=== PATIENT | female | born 1955 | race Caucasian/White ===

== ENCOUNTER 2016-07-05 11:54 | Emergency (ER) | payer MEDICARE, OTHER ==
[~2016-07-05] VITALS: Ht 170.2 cm; Wt 91.1 kg
[~2016-07-05 11:54] MED LIST: ALBU1.25 NEB; AZIT250T3 PO; COMPRESSOR NEBU1 MIS; INDO50CA PO; MOBI15TA PO; NEBUKIT5; PRED10PA2 PO; VENTAER INH
[2016-07-05 12:11] VITALS: BP 125/73; PULSE 77; RESP 18; TEMP 98.1; O2SAT 96
--- NOTE | 2016-07-05 12:23 | PD ---
HPI Chief Complaint: Skin Problem Time Seen by Provider: 12:23 Travel History International Travel<30 days: No Contact w/Intl Traveler<30days: No Traveled to known affect area: No History of Present Illness HPI 60-year-old female presents the emergency Department with pain and swelling in the right knee for approximately 2 weeks. Patient denies any specific injury during that time. She has a history of arthritis. Patient has noted a small contusion to the top of the anterior right knee with small erythematous lesion which she said draining a little bit of pus. She is worried about cellulitis. She has no history of MRSA. She is allergic to erythromycin, Haldol, Mellaril, Stelazine, and Thorazine. PFSH Past Medical History Hx Anticoagulant Therapy: No Blood Disorders: Yes Anxiety: Yes Depression: Yes Heart Rhythm Problems: Yes ("a doctor told me I had a rhythm problem") Cancer: No Cardiac Catheterization: No Cardiovascular Problems: Yes Chemotherapy: No Chest Pain: Yes Congestive Heart Failure: No Cerebrovascular Accident: No Diabetes: No Diminished Hearing: No Endocrine: No Gastrointestinal Disorders: Yes (IBS) Genitourinary: Yes (hx of uti and yeast infection) Hepatitis: Yes (HX OF HEP A) Hypertension: Yes Immune Disorder: No Musculoskeletal: Yes Neurologic: No Psychiatric: Yes ("auditory hallucinations at times") Reproductive: Yes Respiratory: No Integumentary: Yes (CHRONIC "IMPETIGO" ON BLE) Immunizations Current: Yes (HEPATITIS-2001) Migraines: Yes Myocardial Infarction: Yes (STATES MY DOCTOR TOLD ME MY EKG WAS ABNORMAL AND THAT i HAD A HEART ATTACK) Schizophrenia: Yes Thyroid Disease: Yes ?: Not Menopausal: Yes : 3 Para: 3 Miscarriage: 0 : 0 Ovarian Cysts: Yes Past Surgical History Coronary Artery Bypass Graft: No Eye Surgery: Yes (right eye surgery) Gynecologic Surgery: Yes (OVARIAN CYST SURGER AT THE AGE OF 22 ) Hysterectomy: No Pacemaker: No Other Surgery: Yes (R CHEEK SURGERY AT THE AGE 22) Social History Alcohol Use: No Tobacco Use: Yes (2 cigs) Substance Use: Yes (MARIJUANA) Allergies-Medications (Allergen,Severity, Reaction): Coded Allergies: E-Mycin (Verified Adverse Reaction, Severe, INCREASED HR, 07/05/16) Haldol (Verified Adverse Reaction, Severe, LOWERS BP, 07/05/16) Mellaril (Verified Adverse Reaction, Severe, LOWERS BP, 07/05/16) Stelazine (Verified Adverse Reaction, Severe, LOWERS BP, 07/05/16) Thorazine (Verified Adverse Reaction, Severe, LOWERS BP, 07/05/16) Reported Meds & Prescriptions Reported Meds & Active Scripts Active Albuterol Neb (Albuterol Sulfate) 1.25 Mg/3 Ml Neb 1.25 Mg NEB QID NEB PRN Nebulizer Kit/Tubing/Mout (N/A) 1 Kit Kit 1 Kit .ROUTE DIRECTED Compressor Nebulizer 1 Mis Mis 1 Ea .ROUTE DIRECTED Ventolin Hfa 18 GM Inh (Albuterol Sulfate) 90 Mcg/Act Aer 2 Puff INH Q4-6H PRN Prednisone (48) 10 mg tab Dose Pack (Prednisone) 10 Mg Dspk 10 Mg PO DIRECTED Azithromycin 250 Mg Tab 250 Mg PO DIRECTED Take 2 tabs (500 mg) on day 1 then 1 tab daily x 4 days. [id number] M 50 Mg Cap 50 Mg PO TID Reported [id number] M1 15 Mg Tab 15 Mg PO BID Review of Systems Except as stated in HPI: all other systems reviewed are Neg General / Constitutional: No: Fever Eyes: No: Visual changes HENT: No: Headaches Cardiovascular: No: Chest Pain or Discomfort Respiratory: No: Shortness of Breath Gastrointestinal: No: Abdominal Pain Genitourinary: No: Dysuria Musculoskeletal: Positive: Arthralgias, Limited ROM, Pain Skin: Positive Lesions (see history present illness.), No Rash Neurologic: No: Weakness Psychiatric: No: Depression Endocrine: No: Polydipsia Hematologic/Lymphatic: No: Easy Bruising Physical Exam Narrative GENERAL: Morbidly obese patient in no acute distress. SKIN: Warm and dry. Normal color. Normal turgor. Patient has 4 mm superficial lesion to the right anterior upper knee without focal swelling or induration. No signs of abscess. No active drainage or bleeding. HEAD: Atraumatic. Normocephalic. EYES: Pupils equal and round. No scleral icterus. No injection or drainage. ENT: No nasal bleeding or discharge. Mucous membranes pink and moist. NECK: Trachea midline. Supple nontender. CARDIOVASCULAR: Regular rate and rhythm. RESPIRATORY: No accessory muscle use. Clear to auscultation. Breath sounds equal bilaterally. MUSCULOSKELETAL: Extremities without clubbing, cyanosis, or edema. No obvious deformities. Patient has moderate Gen. knee effusion to the right, with generalized pain without laxity or specificity to medial or lateral joint line. NEUROLOGICAL: Awake and alert. No obvious cranial nerve deficits. Motor grossly within normal limits. Five out of 5 muscle strength in the arms and legs. Normal speech. PSYCHIATRIC: Appropriate mood and affect; insight and judgment normal. Data Data Last Documented VS Vital Signs Date Time Temp Pulse Resp B/P Pulse Ox O2 Delivery O2 Flow Rate FiO2 07/05/16 12:11 98.1 77 18 125/73 96 MDM Medical Decision Making Medical Screen Exam Complete: Yes Emergency Medical Condition: Yes Differential Diagnosis Cellulitis. Right knee effusion. Osteoarthritis. Narrative Course Patient is medically stable at time of exam. Radiographic imaging is not felt warranted. Patient will be treated with prednisone 20 mg twice a day 7 days. Patient also placed on Bactrim DS twice a day 7 days. Patient also use Bactroban to the skin lesion twice daily for the next 7 days. Patient is to use Tarun wrap to the knee for support and comfort for the next week. Patient follow with her primary care physician in one week to ensure improvement. Patient may require orthopedic consult on her knee. Patient can return the emergency Department with worsening symptoms as needed. Diagnosis Primary Impression: Right knee pain Qualified Code: M25.561 - Acute pain of right knee Additional Impression: Cellulitis Qualified Code: L03.115 - Cellulitis of right lower extremity Referrals: Primary Care Physician Patient Instructions: Cellulitis (ED), General Instructions, Knee Pain (ED) Additional Instructions: Radiographic imaging is not felt warranted. Patient will be treated with prednisone 20 mg twice a day 7 days. Patient also placed on Bactrim DS twice a day 7 days. Patient also use Bactroban to the skin lesion twice daily for the next 7 days. Patient is to use Tarun wrap to the knee for support and comfort for the next week. Patient follow with her primary care physician in one week to ensure improvement. Patient may require orthopedic consult on her knee. Patient can return the emergency Department with worsening symptoms as needed. Med/Other Pt SpecificInfo: Prescription(s) given Disposition: 01 DISCHARGE HOME Condition: Stable Henry Ortiz July 05, 2016 12:23
[2016-07-05] MEDS ORDERED: SULFAMETHOXAZOLE-TRIMETHOPRIM DS 800-160 MG TAB PO ONE (12:30)
[2016-07-05] MEDS ORDERED: KETOROLAC TROMETHAMINE 60 MG/2 ML (IM) VIAL IM ONE (12:30)
[2016-07-05] MEDS ORDERED: MUPI2%T TOPICAL (12:34)
[2016-07-05] MEDS ORDERED: PRED20 PO (12:34)
[2016-07-05] MEDS ORDERED: BACT800T5 PO (12:34)
== END 2016-07-05 13:00 | disposition home or self-care (01) ==
LOC: PHEFT 11:54
DX: M25.561 Pain in right knee (principal); L03.115 Cellulitis of right lower limb; B95.61 Methicillin susceptible Staphylococcus aureus infection as the cause of diseases classified elsewhere
CPT/HCPCS: 86403; 87070; 87186; 96372; 99283; J1885

== ENCOUNTER 2016-07-22 14:29 | Emergency (ER) | payer MEDICARE, OTHER ==
[~2016-07-22] VITALS: Ht 167.6 cm; Wt 88.6 kg
[~2016-07-22 14:29] MED LIST changes: +BACT800T5 PO; +MUPI2%T TOPICAL; +PRED20 PO
[2016-07-22 14:33] VITALS: BP 134/72; PULSE 89; RESP 18; TEMP 98.3; O2SAT 97
[2016-07-22] MEDS ORDERED: IBUP-232 PO (15:03)
--- NOTE | 2016-07-22 15:03 | PD ---
HPI Chief Complaint: Musculoskeletal Complaint Time Seen by Provider: 14:59 Travel History International Travel<30 days: No Contact w/Intl Traveler<30days: No Traveled to known affect area: No History of Present Illness HPI 60-year-old female presents to the emergency room requesting pain medications for a torn meniscus. Patient states she injured it couple months ago and has had pain since then. She's been the emergency room several times for knee pain and followed-up with her primary care physician who ordered an outpatient MRI. Her MRI was done 5 days ago and she found out results 3 days ago that she has a torn medial meniscus. She has an appointment with her orthopedic surgeon, Dr. Marie, in 3 weeks. Patient sees her primary care physician every 2 weeks and is prescribed Tylenol #3 which she is supposed to take every 3 hours but has been taking every 4 hours because the pain is too much. It is constant, sharp, worse with ambulation and range of motion. She has an appointment with her primary care physician in 5 days. She refuses to wear a knee immobilizer because it is too uncomfortable. Denies paresthesias. PFSH Past Medical History Hx Anticoagulant Therapy: No Blood Disorders: Yes Anxiety: Yes Depression: Yes Heart Rhythm Problems: Yes ("a doctor told me I had a rhythm problem") Cancer: No Cardiac Catheterization: No Cardiovascular Problems: Yes Chemotherapy: No Chest Pain: Yes Congestive Heart Failure: No Cerebrovascular Accident: No Diabetes: No Diminished Hearing: No Endocrine: No Gastrointestinal Disorders: Yes (IBS) Genitourinary: Yes (hx of uti and yeast infection) Hepatitis: Yes (HX OF HEP A) Hypertension: Yes Immune Disorder: No Musculoskeletal: Yes Neurologic: No Psychiatric: Yes ("auditory hallucinations at times") Reproductive: Yes Respiratory: No Integumentary: Yes (CHRONIC "IMPETIGO" ON BLE) Immunizations Current: Yes (HEPATITIS-2001) Migraines: Yes Myocardial Infarction: Yes (STATES MY DOCTOR TOLD ME MY EKG WAS ABNORMAL AND THAT i HAD A HEART ATTACK) Schizophrenia: Yes Thyroid Disease: Yes Tetanus Vaccination: > 5 Years Influenza Vaccination: No Menopausal: Yes : 3 Para: 3 Miscarriage: 0 : 0 Ovarian Cysts: Yes Past Surgical History Coronary Artery Bypass Graft: No Eye Surgery: Yes (right eye surgery) Gynecologic Surgery: Yes (OVARIAN CYST SURGER AT THE AGE OF 22 ) Hysterectomy: No Pacemaker: No Other Surgery: Yes (R CHEEK SURGERY AT THE AGE 22) Social History Alcohol Use: No Tobacco Use: Yes (03/10 PPD) Substance Use: Yes (MARIJUANA) Allergies-Medications (Allergen,Severity, Reaction): Coded Allergies: E-Mycin (Verified Adverse Reaction, Severe, INCREASED HR, 07/22/16) Haldol (Verified Adverse Reaction, Severe, LOWERS BP, 07/22/16) Mellaril (Verified Adverse Reaction, Severe, LOWERS BP, 07/22/16) Stelazine (Verified Adverse Reaction, Severe, LOWERS BP, 07/22/16) Thorazine (Verified Adverse Reaction, Severe, LOWERS BP, 07/22/16) Reported Meds & Prescriptions Reported Meds & Active Scripts Active Prednisone 20 Mg Tab 20 Mg PO BID Albuterol Neb (Albuterol Sulfate) 1.25 Mg/3 Ml Neb 1.25 Mg NEB QID NEB PRN Nebulizer Kit/Tubing/Mout (N/A) 1 Kit Kit 1 Kit .ROUTE DIRECTED Compressor Nebulizer 1 Mis Mis 1 Ea .ROUTE DIRECTED Ventolin Hfa 18 GM Inh (Albuterol Sulfate) 90 Mcg/Act Aer 2 Puff INH Q4-6H PRN Prednisone (48) 10 mg tab Dose Pack (Prednisone) 10 Mg Dspk 10 Mg PO DIRECTED Review of Systems Except as stated in HPI: all other systems reviewed are Neg Physical Exam Narrative GENERAL: Unkempt, morbidly obese female in no acute distress. Afebrile. Ambulatory with a limp. SKIN: Focused skin assessment warm/dry. No erythema or ecchymosis. HEAD: Atraumatic. Normocephalic. EYES: Pupils equal and round. No scleral icterus. No injection or drainage. NECK: Trachea midline. No JVD. CARDIOVASCULAR: Regular rate and rhythm. No murmur appreciated. RESPIRATORY: No accessory muscle use. Clear to auscultation. Breath sounds equal bilaterally. MUSCULOSKELETAL: No obvious deformities. No clubbing. No cyanosis. No edema. Full range of motion. 2+ dorsalis pedis pulse. Strength 5/5 and equal. Tenderness to palpation of the medial knee. Data Data Last Documented VS Vital Signs Date Time Temp Pulse Resp B/P Pulse Ox O2 Delivery O2 Flow Rate FiO2 07/22/16 14:33 98.3 89 18 134/72 97 MDM Medical Decision Making Medical Screen Exam Complete: Yes Emergency Medical Condition: No Medical Record Reviewed: Yes Differential Diagnosis Bursitis versus fracture versus ligamentous injury versus meniscal tear Narrative Course 60-year-old female presents to the emergency room for requesting narcotic pain medication for chronic right knee pain. Patient had an MRI this week that revealed she has a meniscus tear. Her primary care physician would not prescribe her more pain medication because he has been giving her Tylenol 3 every 2 weeks and told her to come to the emergency room. Physical exam reveals right lower extremity is neurovascularly intact with 2+ dorsalis pedis pulse. He is ambulatory without a limp. No edema, ecchymosis, erythema. There are no urgent or emergent medical conditions at this time. A medical screening exam was performed: At the time of evaluation the presenting medical condition was determined not to be of an emergent nature. The patient was given the option of receiving additional care, and decided to stay. She was given a prescription for ibuprofen and told to follow-up with her primary care physician as planned in 5 days. Diagnosis Primary Impression: Acute meniscal tear of right knee Qualified Code: S83.206A - Acute meniscal tear of right knee, initial encounter Referrals: Primary Care Physician Patient Instructions: General Instructions, Meniscus Tear (ED) Additional Instructions: Rest and drink plenty of fluids. Take ibuprofen with food as directed, as needed for pain. Apply ice to the affected area for 20 minutes at a time, as needed for pain and swelling. Follow-up with a primary care physician. Return to the emergency room for worsening symptoms. Med/Other Pt SpecificInfo: Prescription(s) given Scripts Ibuprofen 600 Mg [id number] Mg PO Q6H PRN (Pain/Inflammation) #40 TAB Ref 0 Prov:Louie Anderson MD 07/22/16 Disposition: 01 DISCHARGE HOME Condition: Stable Marialuisa Melendrez July 22, 2016 15:03
== END 2016-07-22 15:31 | disposition home or self-care (01) ==
LOC: PHEFT 14:29
DX: S83.206D Unspecified tear of unspecified meniscus, current injury, right knee, subsequent encounter (principal); X58.XXXD Exposure to other specified factors, subsequent encounter
CPT/HCPCS: 99283

== ENCOUNTER 2016-08-18 03:55 | Emergency (ER) | payer MEDICARE, OTHER ==
[~2016-08-18 03:55] MED LIST changes: -AZIT250T3 PO; -BACT800T5 PO; +IBUP-232 PO; -INDO50CA PO; -MOBI15TA PO; -MUPI2%T TOPICAL
[2016-08-18 04:05] VITALS: BP 148/91; PULSE 68; RESP 18; TEMP 97.4
--- NOTE | 2016-08-18 04:46 | PD ---
HPI Chief Complaint: Lump, Cyst, Hernia Time Seen by Provider: 04:25 Travel History International Travel<30 days: No Contact w/Intl Traveler<30days: No Traveled to known affect area: No History of Present Illness HPI Patient is a 60-year-old female presenting to the department via [facility] for evaluation of right shoulder pain that has been ongoing for several days. She states she noticed a lump on her shoulder yesterday afternoon which prompted her visit tonight. She states she took ibuprofen yesterday with no relief of her symptoms. She denies any injury or trauma. She states she cannot move her arm. Per EMS report patient was moving both arms en route to the hospital without difficulty. Patient states her pain is a 7 out of 10. PFSH Past Medical History Hx Anticoagulant Therapy: No Blood Disorders: Yes Anxiety: Yes Depression: Yes Cancer: No Cardiac Catheterization: No Cardiovascular Problems: Yes Chemotherapy: No Chest Pain: Yes Congestive Heart Failure: No Cerebrovascular Accident: No Diabetes: No Diminished Hearing: No Endocrine: No Gastrointestinal Disorders: Yes (IBS) Hepatitis: Yes (HX OF HEP A) Hypertension: Yes Immune Disorder: No Musculoskeletal: Yes Neurologic: No Psychiatric: Yes ("auditory hallucinations at times") Reproductive: Yes Respiratory: No Integumentary: Yes (CHRONIC "IMPETIGO" ON BLE) Immunizations Current: Yes (HEPATITIS-2000) Migraines: Yes Myocardial Infarction: Yes (STATES MY DOCTOR TOLD ME MY EKG WAS ABNORMAL AND THAT i HAD A HEART ATTACK) Schizophrenia: Yes Thyroid Disease: Yes ?: Not Menopausal: Yes : 3 Para: 3 Miscarriage: 0 : 0 Ovarian Cysts: Yes Past Surgical History Coronary Artery Bypass Graft: No Eye Surgery: Yes (right eye surgery) Gynecologic Surgery: Yes (OVARIAN CYST SURGER AT THE AGE OF 22 ) Hysterectomy: No Pacemaker: No Other Surgery: Yes (R CHEEK SURGERY AT THE AGE 22) Social History Alcohol Use: No Tobacco Use: Yes (03/10 PPD) Substance Use: Yes (MARIJUANA) Allergies-Medications (Allergen,Severity, Reaction): Coded Allergies: E-Mycin (Verified Adverse Reaction, Severe, INCREASED HR, 07/22/16) Haldol (Verified Adverse Reaction, Severe, LOWERS BP, 07/22/16) Mellaril (Verified Adverse Reaction, Severe, LOWERS BP, 07/22/16) Stelazine (Verified Adverse Reaction, Severe, LOWERS BP, 07/22/16) Thorazine (Verified Adverse Reaction, Severe, LOWERS BP, 07/22/16) Reported Meds & Prescriptions Reported Meds & Active Scripts Active Ibuprofen 600 Mg Tab 600 Mg PO Q6H PRN Prednisone 20 Mg Tab 20 Mg PO BID Albuterol Neb (Albuterol Sulfate) 1.25 Mg/3 Ml Neb 1.25 Mg NEB QID NEB PRN Nebulizer Kit/Tubing/Mout (N/A) 1 Kit Kit 1 Kit .ROUTE DIRECTED Compressor Nebulizer 1 Mis Mis 1 Ea .ROUTE DIRECTED Ventolin Hfa 18 GM Inh (Albuterol Sulfate) 90 Mcg/Act Aer 2 Puff INH Q4-6H PRN Prednisone (48) 10 mg tab Dose Pack (Prednisone) 10 Mg Dspk 10 Mg PO DIRECTED Review of Systems Except as stated in HPI: all other systems reviewed are Neg Musculoskeletal: Positive: Myalgias, Arthralgias, Limited ROM Skin: Positive Lumps Physical Exam Narrative GENERAL: Well-nourished, well-developed patient. SKIN: Focused skin assessment warm/dry. HEAD: Normocephalic. EYES: No scleral icterus. No injection or drainage. NECK: Supple, trachea midline. No JVD or lymphadenopathy. CARDIOVASCULAR: Regular rate and rhythm without murmurs, gallops, or rubs. RESPIRATORY: Breath sounds equal bilaterally. No accessory muscle use. GASTROINTESTINAL: Abdomen soft, non-tender, nondistended. MUSCULOSKELETAL: No cyanosis, or edema. There is a 2 cm protrusion to the anterior right shoulder, no erythema noted. Nontender to palpation. Positive radial pulse, no edema, no erythema, patient is neurovascularly intact. BACK: Nontender without obvious deformity. No CVA tenderness. Data Data Last Documented VS Vital Signs Date Time Temp Pulse Resp B/P Pulse Ox O2 Delivery O2 Flow Rate FiO2 08/18/16 04:05 97.4 68 18 148/91 Orders Shoulder, Complete (>2vws) (08/18/16 ) Ibuprofen (Motrin) (08/18/16 05:15) Cyclobenzaprine (Flexeril) (08/18/16 05:15) MDM Medical Decision Making Medical Screen Exam Complete: Yes Emergency Medical Condition: Yes Interpretation(s) Last Impressions Shoulder X-Ray 08/18/16 0000 Signed Impressions: Service Date/Time: Thursday, August 18, 2016 05:29 - CONCLUSION: Chronic changes and no evidence for acute fracture. Rossy Dominguez MD Vital Signs Date Time Temp Pulse Resp B/P Pulse Ox O2 Delivery O2 Flow Rate FiO2 08/18/16 04:05 97.4 68 18 148/91 Differential Diagnosis Lipoma versus cyst versus tear versus fracture versus malingering versus other Narrative Course Patient is a 60-year-old female presenting for right shoulder pain with no preceding injury or trauma. Patient is neurovascularly intact. She reports utilizing Tylenol No. 3 more than normal due to the pain and is currently out. This is normally prescribed to her by her primary doctor. When patient was not paying attention and talking to the nurse the lump on her shoulder was palpated with no reproducible pain until patient was once again focused on the exam. X-ray of the right shoulder shows no acute changes. The x-ray does mention chronic changes, this was discussed with patient. She continues to want her chronic pain medications. She states that ibuprofen and muscle relaxers will take too long. We'll be given a prescription for Lidoderm patches. She is encouraged to follow-up with her primary doctor for a referral to physical therapy. She verbalized understanding of instructions, she is now requesting a bus pass in order to return home. Patient is stable for discharge. Diagnosis Primary Impression: Shoulder pain Qualified Code: M25.511 - Right shoulder pain, unspecified chronicity Referrals: Primary Care Physician Patient Instructions: General Instructions, Shoulder Pain (ED), Shoulder Separation Exercises (GEN) Additional Instructions: Follow-up with your primary doctor Take ibuprofen as directed, you may continue your home pain medication as previously prescribed Use Lidoderm patches as directed Returned to emergency department for any new or worsening symptoms Heat and ice the affected area, continue range of motion exercises Med/Other Pt SpecificInfo: Prescription(s) given Scripts Lidocaine (Lidoderm)5 % Adh..patch1 Patch TOPICAL DAILY PRN (PAIN SCALE 1 TO 10 ) #10 Prov:Raquel Baird 08/18/16 Disposition: 01 DISCHARGE HOME Condition: Stable Raquel Baird Aug 18, 2016 04:46
[2016-08-18] MEDS ORDERED: CYCLOBENZAPRINE HCL 10 MG TAB PO ONE (05:15)
[2016-08-18] MEDS ORDERED: IBUPROFEN 800 MG TAB PO ONE (05:15)
--- NOTE | 2016-08-18 05:43 | RADRPT ---
EXAM DATE/TIME: 08/18/2016 05:29 [facility] COMPARISON: No previous studies available for comparison. INDICATIONS : Pain shoulder, lump on anterior portion of shoulder. MEDICAL HISTORY : None. SURGICAL HISTORY : None. ENCOUNTER: Initial ACUITY: 1 day PAIN SCORE: 0/10 LOCATION: Right shoulder FINDINGS: No definite fractures, dislocations, lytic, or sclerotic lesions are seen. Slight hypertrophic change s are seen in the AC joint indenting the subacromial fat plane to a moderate degree with a large suba rterial spur. The glenohumeral joint space is well maintained. CONCLUSION: Chronic changes and no evidence for acute fracture. Rossy Dominguez MD on August 18, 2016 at 5:40 Board Certified Radiologist. This report was verified electronically.
[2016-08-18] MEDS ORDERED: LIDO5DIS5 TOPICAL (05:58)
== END 2016-08-18 06:13 | disposition home or self-care (01) ==
LOC: NEPD 03:55
DX: M25.511 Pain in right shoulder (principal); I10 Essential (primary) hypertension; F12.90 Cannabis use, unspecified, uncomplicated; Z72.0 Tobacco use
CPT/HCPCS: 73030; 99283

== ENCOUNTER 2016-08-31 11:00 | Inpatient (IN) | payer MEDICARE, OTHER ==
[~2016-08-31] VITALS: Ht 167.6 cm; Wt 92.0 kg
[~2016-08-31 11:00] MED LIST changes: +LIDO5DIS5 TOPICAL
[2016-08-31 11:20] VITALS: BP 137/59; PULSE 74; RESP 20; TEMP 98.7; O2SAT 96
[2016-08-31] MEDS ORDERED: BACT800T5 PO (11:20)
[2016-08-31] MEDS ORDERED: ACETAMINOPHEN/HYDROcodone 325 MG/5 MG TAB PO ONE (11:30)
[2016-08-31 11:49] LABS: AUTOMATED NEUTROPHIL # 4.7 TH/MM3 (1.8-7.7); BASOPHIL % 0.6 % (0.0-2.0); EOSINOPHIL # 0.1 TH/MM3 (0-0.4); EOSINOPHIL % 1.3 % (0.0-4.0); HEMATOCRIT 37.3 % (35.0-46.0); LYMPH % 17.2 % (9.0-44.0); MEAN CELL VOLUME 84.1 FL (80.0-100.0); MEAN CORPUSCULAR HEMOGLOBIN 28.3 PG (27.0-34.0); MEAN CORPUSCULAR HGB CONC 33.6 % (32.0-36.0); MONO % 5.4 % (0.0-8.0); NEUT % 75.5 % (16.0-70.0); PLATELET COUNT 507 TH/MM3 (150-450); RED BLOOD COUNT 4.44 MIL/MM3 (4.00-5.30); RED CELL DISTRIBUTION WIDTH 13.4 % (11.6-17.2); WHITE BLOOD COUNT 6.1 TH/MM3 (4.0-11.0)
[2016-08-31 11:57] LABS: CHLORIDE 101 MEQ/L (98-107); HEMO FLAGS AUTO DIFF; POTASSIUM 3.2 MEQ/L (3.5-5.1); SODIUM (NA) 137 MEQ/L (136-145)
[2016-08-31 12:00] LABS: ANION GAP 9 MEQ/L (5-15); BICARBONATE 27.4 MEQ/L (21.0-32.0)
[2016-08-31 12:01] LABS: BLOOD UREA NITROGEN 3 MG/DL (7-18)
--- NOTE | 2016-08-31 12:02 | PD ---
HPI Chief Complaint: Skin Problem Time Seen by Provider: 11:19 Travel History International Travel<30 days: No Contact w/Intl Traveler<30days: No Traveled to known affect area: No History of Present Illness HPI Patient is a 60-year-old female brought in by EMS because of right shoulder pain. She has been here a few other times for the same thing. She has an area of redness and fluctuance to the right shoulder, which she says needs to be drained. She went to see an orthopedic surgeon, who took some fluid and sent it for culture. She has pain with movement of the arm. She denies injury to the arm. She says she thinks she had a fever a few days ago, but did not take her temperature. She was on Keflex since last Tuesday as well as Bactrim since last Tuesday. She reports taking these medications as directed. PFSH Past Medical History Hx Anticoagulant Therapy: No Blood Disorders: Yes Anxiety: Yes Depression: Yes Cardiac Catheterization: No Cardiovascular Problems: Yes Chemotherapy: No Chest Pain: Yes Congestive Heart Failure: No Cerebrovascular Accident: No Diabetes: No Diminished Hearing: No Endocrine: No Gastrointestinal Disorders: Yes (IBS) Hepatitis: Yes (HX OF HEP A) Hypertension: Yes Immune Disorder: No Medical other: Yes (MOst Hx recalled due to pt states its all on computer) Musculoskeletal: Yes Neurologic: No Psychiatric: Yes ("auditory hallucinations at times") Reproductive: Yes Respiratory: No Integumentary: Yes (CHRONIC "IMPETIGO" ON BLE) Immunizations Current: Yes (HEPATITIS-2001) Migraines: Yes Myocardial Infarction: Yes (STATES MY DOCTOR TOLD ME MY EKG WAS ABNORMAL AND THAT i HAD A HEART ATTACK) Schizophrenia: Yes Thyroid Disease: Yes Tetanus Vaccination: Unknown Influenza Vaccination: No ?: Not Menopausal: Yes : 3 Para: 3 Miscarriage: 0 : 0 Ovarian Cysts: Yes Past Surgical History Coronary Artery Bypass Graft: No Eye Surgery: Yes (right eye surgery) Gynecologic Surgery: Yes (OVARIAN CYST SURGER AT THE AGE OF 22 ) Hysterectomy: No Pacemaker: No Other Surgery: Yes (R CHEEK SURGERY AT THE AGE 22) Social History Alcohol Use: No Tobacco Use: Yes (03/10 PPD) Substance Use: Yes (MARIJUANA) Allergies-Medications (Allergen,Severity, Reaction): Coded Allergies: E-Mycin (Verified Adverse Reaction, Severe, INCREASED HR, 07/22/16) Haldol (Verified Adverse Reaction, Severe, LOWERS BP, 07/22/16) Mellaril (Verified Adverse Reaction, Severe, LOWERS BP, 07/22/16) Stelazine (Verified Adverse Reaction, Severe, LOWERS BP, 07/22/16) Thorazine (Verified Adverse Reaction, Severe, LOWERS BP, 07/22/16) Reported Meds & Prescriptions Reported Meds & Active Scripts Active Lidoderm (Lidocaine) 5 % Adh..patch 1 Patch TOPICAL DAILY PRN Ibuprofen 600 Mg Tab 600 Mg PO Q6H PRN Albuterol Neb (Albuterol Sulfate) 1.25 Mg/3 Ml Neb 1.25 Mg NEB QID NEB PRN Nebulizer Kit/Tubing/Mout (N/A) 1 Kit Kit 1 Kit .ROUTE DIRECTED Ventolin Hfa 18 GM Inh (Albuterol Sulfate) 90 Mcg/Act Aer 2 Puff INH Q4-6H PRN Reported Bactrim DS (Sulfamethoxazole-Trimethoprim) 800-160 Mg Tab 1 Tab PO BID Review of Systems Except as stated in HPI: all other systems reviewed are Neg General / Constitutional: Positive: Fever HENT: No: Headaches, Lightheadedness Cardiovascular: No: Chest Pain or Discomfort Respiratory: No: Shortness of Breath Gastrointestinal: No: Nausea, Vomiting Musculoskeletal: Positive: Pain Skin: Positive Change in Pigmentation Neurologic: No: Weakness, Dizziness Physical Exam Narrative GENERAL: Awake and alert, in no acute distress. SKIN: Focused skin assessment warm/dry. 5 cm area of erythema and warmth, slight fluctuance to the right anterior shoulder. HEAD: Atraumatic. Normocephalic. EYES: Pupils equal and round. No scleral icterus. No injection or drainage. ENT: Mucous membranes pink and moist. NECK: Trachea midline. No JVD. CARDIOVASCULAR: Regular rate and rhythm. No murmur appreciated. RESPIRATORY: No accessory muscle use. Clear to auscultation. Breath sounds equal bilaterally. MUSCULOSKELETAL: No obvious deformities. No clubbing. No cyanosis. No edema. Able to range her right shoulder fully. The right shoulder joint itself is not warm or erythematous. NEUROLOGICAL: Awake and alert. No obvious cranial nerve deficits. Motor grossly within normal limits. Normal speech. PSYCHIATRIC: Appropriate mood and affect; insight and judgment normal. Data Data Last Documented VS Vital Signs Date Time Temp Pulse Resp B/P Pulse Ox O2 Delivery O2 Flow Rate FiO2 08/31/16 12:37 69 20 105/59 97 Nasal Cannula 1 08/31/16 11:20 98.7 Orders Complete Blood Count With Diff (08/31/16 11:24) Comprehensive Metabolic Panel (08/31/16 11:24) Ct Shoulder W Iv Contrast (08/31/16 ) Iv Access Insert/Monitor (08/31/16 11:24) Acetamin-Hydrocod 325-5 Mg ([place] 5-325 (08/31/16 11:30) Iohexol 350 Inj (Omnipaque 350 Inj) (08/31/16 12:29) Clindamycin Inj (Cleocin Inj) (08/31/16 13:15) Levofloxacin 750 Mg Premix Inj (Levaquin (08/31/16 13:15) Admit Order (Ed Use Only) (08/31/16 ) Labs Laboratory Tests Test 08/31/16 11:40 White Blood Count 6.1 TH/MM3 Red Blood Count 4.44 MIL/MM3 Hemoglobin 12.6 GM/DL Hematocrit 37.3 % Mean Corpuscular Volume 84.1 FL Mean Corpuscular Hemoglobin 28.3 PG Mean Corpuscular Hemoglobin 33.6 % Concent Red Cell Distribution Width 13.4 % Platelet Count 507 TH/MM3 Mean Platelet Volume 7.4 FL Neutrophils (%) (Auto) 75.5 % Lymphocytes (%) (Auto) 17.2 % Monocytes (%) (Auto) 5.4 % Eosinophils (%) (Auto) 1.3 % Basophils (%) (Auto) 0.6 % Neutrophils # (Auto) 4.7 TH/MM3 Lymphocytes # (Auto) 1.0 TH/MM3 Monocytes # (Auto) 0.3 TH/MM3 Eosinophils # (Auto) 0.1 TH/MM3 Basophils # (Auto) 0.0 TH/MM3 CBC Comment AUTO DIFF Differential Comment AUTO DIFF CONFIRMED Sodium Level 137 MEQ/L Potassium Level 3.2 MEQ/L Chloride Level 101 MEQ/L Carbon Dioxide Level 27.4 MEQ/L Anion Gap 9 MEQ/L Blood Urea Nitrogen 3 MG/DL Creatinine 0.68 MG/DL Estimat Glomerular Filtration 88 ML/MIN Rate Random Glucose 104 MG/DL Calcium Level 8.7 MG/DL Total Bilirubin 0.2 MG/DL Aspartate Amino Transf 14 U/L (AST/SGOT) Alanine Aminotransferase 16 U/L (ALT/SGPT) Alkaline Phosphatase 81 U/L Total Protein 7.5 GM/DL Albumin 2.9 GM/DL MDM Medical Decision Making Medical Screen Exam Complete: Yes Emergency Medical Condition: Yes Medical Record Reviewed: Yes Differential Diagnosis Abscess versus cellulitis versus arthritis Narrative Course Patient is a 60-year-old female who comes in complaining of pain and swelling to her right shoulder. She has been here multiple times for this, and most recently was put on Bactrim and Keflex for infection. She says it's not improving in the pain is getting worse. Exam shows an area of redness and fluctuance to the anterior portion of the shoulder. IV established, labs sent. Labs show no acute abnormalities. CT of the shoulders shows a large fluid collection that extends into the glenohumeral joint. Patient given Levaquin based on sensitivities from culture performed on August 27. Dr. Powers from orthopedics was consulted. He will take the patient to the OR tomorrow for drainage of fluid. Patient will be transferred to the main hospital for admission. Diagnosis Primary Impression: Abscess of right shoulder Additional Impression: Cellulitis Qualified Code: L03.113 - Cellulitis of right upper extremity Admitting Information Admitting Physician Requests: Admit Mayra Marcos MD Aug 31, 2016 12:02
[2016-08-31 12:03] LABS: ALT (GPT) 16 U/L (10-53)
[2016-08-31 12:04] LABS: AST (GOT) 14 U/L (15-37); GLOMERULAR FILTRATION RATE 88 ML/MIN (>89)
[2016-08-31 12:06] LABS: ALKALINE PHOSPHATASE 81 U/L (45-117)
[2016-08-31 12:09] LABS: TOTAL BILIRUBIN ADULT 0.2 MG/DL (0.2-1.0)
[2016-08-31 12:17] LABS: SCAN/DIFF AUTO DIFF CONFIRMED
[2016-08-31] MEDS ORDERED: IOHEXOL 350 MG/ML 10 ML VIAL (for RAD DIAG) IV ONE (12:29)
[2016-08-31 12:37] VITALS: BP 105/59; PULSE 69; RESP 20; O2SAT 97
--- NOTE | 2016-08-31 12:51 | RADRPT ---
EXAM DATE/TIME: 08/31/2016 12:07 [facility] COMPARISON: No previous studies available for comparison. INDICATIONS : Red, swollen draining wound to anterior right shoulder starting three weeks ago. IV CONTRAST: 75 cc Omnipaque 350 (iohexol) IV RADIATION DOSE: 27.55 CTDIvol (mGy) MEDICAL HISTORY : Cardiovascular disease. Hypertension. SURGICAL HISTORY : None. ENCOUNTER: Initial ACUITY: 3 weeks PAIN SCALE: 8/10 LOCATION: Right shoulder TECHNIQUE: Volumetric scanning of the shoulder was performed. Using automated exposure control and adjustment o f the mA and/or kV according to patient size, radiation dose was kept as low as reasonably achievable to obtain optimal diagnostic quality images. DICOM format image data is available electronically fo r review and comparison. FINDINGS: There is a large multiloculated rim-enhancing fluid collection extending from just above the glenohum eral joint, into the glenohumeral joint, axillary recess, and extending medially in the subcoracoid r egion. On axial image 48 the medial component involving the adjacent musculature measures 4.5 x 3.4 c m in transverse and AP dimension involving the proximal biceps musculature. The component directly an terior to the humeral head and abutting the humeral head measures 5.7 x 1.5 cm in transverse and AP d imension extending superolaterally, the lateral component measuring 5.4 x 1.8 cm in AP and transverse dimension and involving the deltoid musculature superiorly on image 24 measuring 6.2 x 4.5 cm in AP and transverse dimension. There is mild subcutaneous stranding. There are mildly prominent axillary l ymph nodes which are likely reactive. A high riding humeral head is noted consistent with rotator cuf f tears and moderate to severe hypertrophic changes of the acromioclavicular joint are noted. There a re impingement type changes at the greater tuberosity. Prominent osteophyte formation at the distal a spect of the acromion process. CONCLUSION: 1. Large rim-enhancing fluid collection as described above characteristic of an abscess. Diego Pierre MD on August 31, 2016 at 12:45 Board Certified Radiologist. This report was verified electronically.
[2016-08-31] MEDS ORDERED: CLINDAMYCIN INJ 600 MG in SODIUM CHLORIDE 0.9% INJ 100 ML IV ONE (13:15)
[2016-08-31] MEDS ORDERED: LEVOFLOXACIN 750 MG PREMIX INJ 150 ML IV ONE (13:15)
[2016-08-31] MEDS ORDERED: MAGNESIUM HYDROXIDE SUSP 30 ML CUP PO PRN (14:00)
[2016-08-31] MEDS ORDERED: MORPHINE SULFATE 4 MG/ML INJ IV PUSH PRN (14:00)
[2016-08-31] MEDS ORDERED: NALOXONE HCL 0.4 MG/ML AMP IV PRN (14:00)
[2016-08-31] MEDS ORDERED: ACETAMINOPHEN 325 MG TAB PO PRN (14:00)
[2016-08-31] MEDS ORDERED: ONDANSETRON HCL 4 MG/2 ML VIAL IVP PRN (14:00)
[2016-08-31] MEDS ORDERED: SODIUM CHLORIDE 0.9% FLUSH 10 ML FLUSH IV FLUSH PRN (14:00)
[2016-08-31 14:54] VITALS: BP 108/55; PULSE 78; RESP 18; O2SAT 96
[2016-08-31] MEDS: SODIUM CHLOR 0.9% 1000 ML INJ 1,000 ML IV SCH (15:32)
[2016-08-31] MEDS ORDERED: MORPHINE SULFATE 8 MG/ML INJ IV PUSH ONE (15:45)
[2016-08-31 15:53] VITALS: BP 105/50; PULSE 80; RESP 20
[2016-08-31] MEDS: DOCUSATE SODIUM 50 MG/SENNA 8.6 MG TAB PO SCH (20:07)
[2016-08-31 20:15] VITALS: BP 113/56; PULSE 78; RESP 18; TEMP 96.2; O2SAT 93
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
[2016-08-31] MEDS ORDERED: RESP: ALBUTEROL 2.5 MG/IPRATROPIUM 0.5 MG NEB (PRN) NEB (20:45)
[2016-08-31] MEDS ORDERED: POTASSIUM CHLORIDE 25 MEQ EFFERVESCENT TAB PO ONE (20:45)
[2016-08-31] MEDS ORDERED: SODIUM CHLORIDE 0.9% FLUSH 10 ML FLUSH IV FLUSH SCH (21:00)
[2016-08-31] MEDS: REMOVE OLD PATCH T-DERMAL SCH (21:03)
[2016-08-31] MEDS: MORPHINE SULFATE 4 MG/ML INJ IV PUSH PRN (21:50)
[2016-09-01 00:09] VITALS: BP 120/60; PULSE 85; RESP 18; TEMP 97.1; O2SAT 97
[2016-09-01] MEDS: SODIUM CHLOR 0.9% 1000 ML INJ 1,000 ML IV SCH ×3 (00:31→19:43)
[2016-09-01] MEDS: MORPHINE SULFATE 4 MG/ML INJ IV PUSH PRN ×2 (01:57→22:11)
[2016-09-01 04:35] VITALS: BP 105/57; PULSE 70; RESP 18; TEMP 97.4; O2SAT 98
[2016-09-01 05:39] LABS: AUTOMATED NEUTROPHIL # 3.4 TH/MM3 (1.8-7.7); BASOPHIL # 0.1 TH/MM3 (0-0.2); BASOPHIL % 1.5 % (0.0-2.0); EOSINOPHIL # 0.2 TH/MM3 (0-0.4); EOSINOPHIL % 2.7 % (0.0-4.0); HEMATOCRIT 33.1 % (35.0-46.0); HEMO FLAGS DIFF FINAL; LYMPH % 30.8 % (9.0-44.0); LYMPHOCYTE # 1.9 TH/MM3 (1.0-4.8); MEAN CORPUSCULAR HGB CONC 33.3 % (32.0-36.0); MONO % 8.5 % (0.0-8.0); NEUT % 56.5 % (16.0-70.0); PLATELET COUNT 414 TH/MM3 (150-450); RED BLOOD COUNT 3.93 MIL/MM3 (4.00-5.30); RED CELL DISTRIBUTION WIDTH 14.5 % (11.6-17.2); WHITE BLOOD COUNT 6.1 TH/MM3 (4.0-11.0)
[2016-09-01 05:59] LABS: BICARBONATE 26.2 MEQ/L (21.0-32.0); POTASSIUM 3.7 MEQ/L (3.5-5.1)
[2016-09-01] MEDS ORDERED: ACETAMINOPHEN/HYDROcodone 325 MG/7.5 MG TAB PO ONE (06:00)
--- NOTE | 2016-09-01 06:54 | PD.ORT.PN ---
Subjective Subjective Remarks Has had continued worsening pain with range of motion of shoulder with swelling. Shoulder is aspirated and shows bacterial infection. No other complaints Objective Vitals Vital Signs Date Time Temp Pulse Resp B/P Pulse Ox O2 Delivery O2 Flow Rate FiO2 09/01/16 04:35 97.4 70 18 105/57 98 09/01/16 00:09 97.1 85 18 120/60 97 08/31/16 21:54 Nasal Cannula 1.00 08/31/16 20:15 96.2 78 18 113/56 93 08/31/16 17:49 18 08/31/16 15:53 80 20 105/50 Room Air 1 08/31/16 14:54 78 18 108/55 96 Nasal Cannula 1 08/31/16 12:37 69 20 105/59 97 Nasal Cannula 1 08/31/16 12:34 20 08/31/16 11:35 97 Nasal Cannula 1 08/31/16 11:25 91 Nasal Cannula 1 08/31/16 11:20 98.7 74 20 137/59 96 I/O 08/31/16 08/31/16 08/31/16 09/01/16 09/01/16 09/01/16 07:00 15:00 23:00 07:00 15:00 23:00 Intake Total 505 ml 874 ml Balance 505 ml 874 ml Intake Oral 480 ml IV Total 25 ml 874 ml # Voids 3 3 Result Diagram: 09/01/16 0451 09/01/16 0451 Imaging Last 72 hours Impressions Upper Extremity CT 08/31/16 0000 Signed Impressions: Service Date/Time: Wednesday, August 31, 2016 12:07 - CONCLUSION: 1. Large rim-enhancing fluid collection as described above characteristic of an abscess. Diego Pierre MD Objective Remarks Right upper extremity: Erythema and swelling of +3 over anterior shoulder. Pain with movement of shoulder. Distally intact sensation over the radial ulnar median nerves dictations good capillary refills. She is able to extend her fingers and make a fist Assessment & Plan Assessment and Plan Right shoulder infection with abscess Nothing by mouth Sign consents Surgery this morning for irrigation debridement with Dr. Tanisha Sims,Abhishek BENITO Sep 01, 2016 06:54
[2016-09-01] MEDS ORDERED: FAMOTIDINE 20 MG/2 ML VIAL ONE (07:03)
[2016-09-01] MEDS ORDERED: VANCOMYCIN HCL 1000 MG VIAL ONE (07:07)
[2016-09-01] MEDS ORDERED: SODIUM CHLOR 0.9% 250 ML INJ 250 ML ONE (07:07)
[2016-09-01] MEDS ORDERED: GENTAMICIN SULFATE 80 MG/2 ML VIAL ONE (07:07)
[2016-09-01] MEDS ORDERED: ceFAZolin 2 GM PREMIX 50 ML ONE (07:08)
[2016-09-01] MEDS ORDERED: ACETAMINOPHEN 1000 MG/100 ML VIAL IV ONE (07:09)
[2016-09-01] MEDS ORDERED: ACETAMINOPHEN/HYDROcodone 325 MG/7.5 MG TAB PO PRN (07:30)
[2016-09-01] MEDS ORDERED: SODIUM CHLORIDE 0.9% FLUSH 5 ML FLUSH IVF PRN (07:30)
[2016-09-01] MEDS ORDERED: diphenhydrAMINE HCL 25 MG CAP PO PRN (07:30)
--- NOTE | 2016-09-01 07:33 | PD.OP ---
cc: Abdoul Samayoa MD Operative Report Date of Surgery: Sep 01, 2016 Preoperative Diagnosis: right shoulder abcess Postoperative Diagnosis: Right shoulder abscess, septic right shoulder joint, chronic rotator cuff tear Procedure: I&D right shoulder Anesthesia: gen Surgeon: Abdoul Samayoa Senior Linux Systems Administrator(s): GIULIANA Hamlin PA-C The surgical procedure was assisted by my physician assistant director of nursing. My P.A. presence was necessary throughout this case for the manipulation and positioning of the surgical extremity. My P.A. was assisting me throughout the duration of this procedure. The skill set of a physician assistant director of nursing was medically necessary to complete this procedure. During the surgical case the certified surgical tech/first assistant was working at the back table and the physician assistant director of nursing was directly assisting me. Operation and Findings: Patient was seen and evaluated preoperatively. Patient was found to have infection of the right shoulder. Fluctuance and erythema were noted. Informed consent was obtained after detailed discussion of risk and benefits of surgery. Operative site was marked. Patient was brought to the operating room. IV sedation and GETA were administered by anesthesiologist. Operative arm was prepped with alcohol followed by Hibiclens and draped in usual sterile fashion. Timeout procedure was performed. Procedure began with a 3 inch incision over the anterior shoulder. Subcutaneous tissue dissected with Bovie. The deltopectoral interval was opened A large pocket of purulent material was found. Specimen was obtained for cultures and sensitivities. Curettes and rongeurs were now used to sharply debride the abscess and bursa. Curettes were also used to debride the subdeltoid bursa. The wound was explored. Patient was found to have a large chronic rotator cuff tear. The joint was gently distracted. The joint was thoroughly irrigated. Areas of synovium from within the joint were also excised sharply. After excisional debridement was complete, the wound was thoroughly irrigated with sterile saline. At this point the wound was clean. A SHAD drain was placed into the wound. Fascia was closed with 0 PDS. Subcutaneous tissues closed with 3-0 PDS and skin was closed with 3-0 nylon. Sterile dressings were applied. Patient was awakened and transferred to recovery in stable condition. Needle and sponge counts were correct Abdoul Samayoa MD Sep 01, 2016 07:33
[2016-09-01] MEDS ORDERED: SUGAMMADEX SODIUM 200 MG/2 ML VIAL IV PUSH ONE ×2 (08:07)
[2016-09-01] MEDS ORDERED: Post-op Orders (for Pharmacy) MISC XX ONE (08:22)
[2016-09-01] MEDS ORDERED: *morphine SULFATE 8 MG/ML PERIprocedure ONLY ONE ×2 (08:34→08:56)
[2016-09-01] MEDS ORDERED: fentaNYL CITRATE 250 MCG/5 ML AMP ONE (08:36)
[2016-09-01] MEDS ORDERED: MIDAZOLAM HCL 2 MG/2 ML VIAL ONE (08:36)
--- NOTE | 2016-09-01 08:37 | MB ---
cc: SUJIT MCKEON DATE OF CONSULTATION: 09/01/2016 REASON FOR CONSULTATION Right shoulder infection. CONSULTING PHYSICIAN Dr. Crespo. HISTORY OF PRESENT ILLNESS Selena is a 60-year-old female who has had at least a 3-week history of right shoulder pain. She was initially seen by her primary care physician. She was placed on Keflex. She did notice some improvement. She had aspiration done of the right shoulder which was sent for culture. This came back positive. She is currently awake and alert on the seventh floor. Her only complaint is her right shoulder. She states that the pain and swelling have increased. Her pain is worsened. She is having pain with shoulder motion. She denies any falls or traumatic injuries. Her only complaint is the right shoulder. PAST MEDICAL HISTORY ILLNESSES 1. Reflux. 2. Schizophrenia. 3. Depression. 4. Anxiety. 5. History of tobacco abuse. 6. Esophageal ulcer. PAST SURGICAL HISTORY 1. Ovarian cyst removal. 2. Facial reconstruction from traumatic injury. MEDICATIONS Include: 1. Ibuprofen. 2. Albuterol. 3. Ventolin. 4. Bactrim. ALLERGIES ERYTHROMYCIN, HALDOL, MELLARIL, STELAZINE, THORAZINE. FAMILY HISTORY Positive for cancer in her mother and father. SOCIAL HISTORY The patient lives with significant other. She smokes daily. She denies current drug use. REVIEW OF SYSTEMS The patient denies headache, visual changes, neck pain, chest pain, shortness of breath, abdominal pain, nausea, vomiting or recent weight loss. She complains of right shoulder pain. Pain is worse with movement. PHYSICAL EXAMINATION GENERAL: The patient is a well-developed, well-nourished 60-year-old female, in no acute distress. She is awake and alert. She is alert and oriented x3. VITAL SIGNS: Temperature 97.4, pulse 70, respirations 18, blood pressure 105/57, O2 sat 98% on 1 liter nasal cannula. HEAD: The patient is normocephalic. Pupils are equal. NECK: Soft, nontender. ABDOMEN: Soft, nontender, nondistended. EXTREMITIES: Examination of the right shoulder reveals pain with any shoulder motion. She has significant swelling and fluctuance around the anterior shoulder and deltoid muscle. There is a small amount of drainage present. She has no pain with elbow or shoulder or finger motion. She has intact sensation in all fingers. Radial pulses palpable. Sensation is intact in all fingers. Examination of left arm reveals no pain with shoulder, elbow or wrist motion. Skin is intact. Radial pulses palpable. Sensation is intact. Examination of bilateral lower extremities reveals no pain with hip, knee or ankle motion. Skin is intact to both feet. Dorsalis pedis pulses palpable. RADIOGRAPHY CT scan of right shoulder was reviewed. There appears to be a large fluid collection in the subacromial space. IMPRESSION 1. Right shoulder infection. 2. Tobacco dependence. PLAN Treatment options were discussed with the patient. At this point I would recommend right shoulder irrigation and debridement. Risks of surgery include bleeding, infection, injuries to arteries, nerves and blood vessels, complication of anesthesia as well as medical complications including blood clot, stroke, heart attack and . All questions were answered. I will plan on surgery today. A mid-level provider in my office, nurse practitioner or PA, may see this patient on a follow-up basis and continue to implement the objective of this plan including: Starting or adjusting medications, injections of muscle, tendon, bursa or joints, cast application, orthotic or brace application, physical therapy, further radiographic studies including x-ray, MRI, CT, ultrasounds or bone scan, vascular studies, neurologic studies, or other specialist consultations, and proceeding with surgical management as appropriate. MD THERESE Araya/MAGGIE /8:15 AM /8:26 AM
[2016-09-01 09:52] VITALS: BP 118/62; PULSE 77; RESP 18; TEMP 95.6; O2SAT 90
[2016-09-01] MEDS ORDERED: RESP: ALBUTEROL 1.25 MG/3 ML NEB (PRN) NEB (11:30)
[2016-09-01] MEDS ORDERED: ALBUTEROL SULFATE 90 MCG/ACT HFA 18 GM INHALER INH PRN (11:30)
--- NOTE | 2016-09-01 11:36 | HHI.PR ---
Subjective Remarks Patient just came from surgery Alert oriented Some pain at surgical site Offering no other complaint Lying on bed without any apparent distress Objective Objective Results - Vital Signs Date Time Temp Pulse Resp B/P Pulse Ox O2 Delivery O2 Flow Rate FiO2 09/01/16 09:52 95.6 77 18 118/62 90 09/01/16 08:45 83 18 126/58 97 Nasal Cannula 2 09/01/16 08:30 83 16 103/69 94 Nasal Cannula 2 09/01/16 08:23 98.5 88 16 94/67 97 Nasal Cannula 2 09/01/16 04:35 97.4 70 18 105/57 98 09/01/16 00:09 97.1 85 18 120/60 97 08/31/16 21:54 Nasal Cannula 1.00 08/31/16 20:15 96.2 78 18 113/56 93 08/31/16 17:49 18 08/31/16 15:53 80 20 105/50 Room Air 1 08/31/16 14:54 78 18 108/55 96 Nasal Cannula 1 08/31/16 12:37 69 20 105/59 97 Nasal Cannula 1 08/31/16 12:34 20 08/31/16 11:35 97 Nasal Cannula 1 I/O 08/31/16 08/31/16 08/31/16 09/01/16 09/01/16 09/01/16 07:00 15:00 23:00 07:00 15:00 23:00 Intake Total 505 ml 874 ml 100 ml Output Total 30 ml Balance 505 ml 874 ml 70 ml Intake Oral 480 ml IV Total 25 ml 874 ml 100 ml Output Drainage Total 30 ml # Voids 3 3 Result Diagram: 09/01/16 0451 09/01/16 0451 Imaging Last Impressions Upper Extremity CT 08/31/16 0000 Signed Impressions: Service Date/Time: Wednesday, August 31, 2016 12:07 - CONCLUSION: 1. Large rim-enhancing fluid collection as described above characteristic of an abscess. Diego Pierre MD Other Results Laboratory Tests Test 08/31/16 09/01/16 11:40 04:51 White Blood Count 6.1 6.1 Red Blood Count 4.44 3.93 Hemoglobin 12.6 11.0 Hematocrit 37.3 33.1 Mean Corpuscular Volume 84.1 84.0 Mean Corpuscular Hemoglobin 28.3 28.0 Mean Corpuscular Hemoglobin 33.6 33.3 Concent Red Cell Distribution Width 13.4 14.5 Platelet Count 507 414 Mean Platelet Volume 7.4 7.6 Neutrophils (%) (Auto) 75.5 56.5 Lymphocytes (%) (Auto) 17.2 30.8 Monocytes (%) (Auto) 5.4 8.5 Eosinophils (%) (Auto) 1.3 2.7 Basophils (%) (Auto) 0.6 1.5 Neutrophils # (Auto) 4.7 3.4 Lymphocytes # (Auto) 1.0 1.9 Monocytes # (Auto) 0.3 0.5 Eosinophils # (Auto) 0.1 0.2 Basophils # (Auto) 0.0 0.1 CBC Comment AUTO DIFF DIFF FINAL Differential Comment AUTO DIFF CONFIRMED Sodium Level 137 140 Potassium Level 3.2 3.7 Chloride Level 101 106 Carbon Dioxide Level 27.4 26.2 Anion Gap 9 8 Blood Urea Nitrogen 3 4 Creatinine 0.68 0.70 Estimat Glomerular Filtration 88 85 Rate Random Glucose 104 93 Calcium Level 8.7 8.5 Total Bilirubin 0.2 Aspartate Amino Transf 14 (AST/SGOT) Alanine Aminotransferase 16 (ALT/SGPT) Alkaline Phosphatase 81 Total Protein 7.5 Albumin 2.9 Date/Time Procedure Status Source Growth 09/01/16 08:03 Gram Stain Received Fluid Other Pending 09/01/16 08:03 Body Fluid Culture Received Fluid Other Pending 09/01/16 08:03 Fungal Smear Received Fluid Other Pending 09/01/16 08:03 Fungal Culture Received Fluid Other Pending 09/01/16 08:03 Acid Fast Stain Received Fluid Other Pending 09/01/16 08:03 Mycobacterial Culture Received Fluid Other Pending Physical Exam Physical Exam GENERAL: This is a well-nourished, well-developed patient, in no apparent distress. SKIN: Dressing on the right shoulder HEAD: Atraumatic. Normocephalic. EYES: Extraocular motions intact. No scleral icterus. No injection or drainage. ENT: Airway patent. NECK: Trachea midline. Supple CARDIOVASCULAR: Regular rate and rhythm without murmurs, gallops, or rubs. RESPIRATORY: Clear to auscultation. Breath sounds equal bilaterally. No wheezes , rales, or rhonchi. GASTROINTESTINAL: Abdomen soft, non-tender, nondistended. No hepato-splenomegaly , or palpable masses. No guarding. MUSCULOSKELETAL: Dressing on the right shoulder with drainage tube NEUROLOGICAL: Awake and alert and oriented x 4. No focal deficits. A/P Assessment and Plan (1) Shoulder pain (2) Abscess of right shoulder (3) Cellulitis (4) Schizophrenia (5) Tobacco abuse Plan 60-year-old female presented to emergency room with complaint of right shoulder pain, increased erythema and tenderness. She has an area of fluctuation. CT of the shoulder shows large fluid collection that extends into the glenohumeral joint. Right shoulder cellulitis with abscess Continue with Levaquin, sensitivity from culture is noted. -Monitor labs. Labs reviewed from today Orthopedic surgeon consultation and help appreciated. Postop day #0, right shoulder I/D COPD, stable Tobacco abuse DuoNeb's as needed -Tobacco abuse counseling, agreeable with nicotine patch History of schizophrenia, depression and anxiety Patient is not on any maintenance medication Patient will be monitored closely Home medications reviewed, initiated as indicated SCDs for DVT prophylaxis Plan of care has been discussed with the patient further management of the patient will be dependent on the hospital course Jean Crespo MD Sep 01, 2016 11:36
[2016-09-01 12:00] VITALS: BP 112/56; PULSE 75; RESP 16; TEMP 96.2; O2SAT 93
[2016-09-01] MEDS: ACETAMINOPHEN/HYDROcodone 325 MG/7.5 MG TAB PO PRN ×2 (12:13→18:46)
[2016-09-01] MEDS: SODIUM CHLORIDE 0.9% FLUSH 5 ML FLUSH IVF SCH ×2 (12:14→19:43)
[2016-09-01] MEDS: DOCUSATE SODIUM 50 MG/SENNA 8.6 MG TAB PO SCH ×2 (13:01→19:43)
[2016-09-01] MEDS: NICOTINE 7 MG/24 HR PATCH T-DERMAL SCH (13:02)
[2016-09-01] MEDS ORDERED: PROPOFOL 200 MG/20 ML AMP IV ONE (14:34)
[2016-09-01] MEDS ORDERED: ONDANSETRON HCL 4 MG/2 ML VIAL IV PUSH ONE (14:35)
[2016-09-01] MEDS ORDERED: ePHEDrine/NS 25 MG/5 ML SYR IV ONE (14:35)
[2016-09-01] MEDS ORDERED: PHENYLEPH/NS 1000 MCG/10 ML SYR IV ONE (14:36)
[2016-09-01] MEDS: LEVOFLOXACIN 500 MG PREMIX INJ 100 ML IV SCH (15:49)
[2016-09-01 16:00] VITALS: BP 102/56; PULSE 67; RESP 15; TEMP 95.7; O2SAT 94
[2016-09-01] MEDS: REMOVE OLD PATCH T-DERMAL SCH (19:44)
[2016-09-01 20:26] VITALS: BP 96/58; PULSE 82; RESP 17; TEMP 98.1; O2SAT 95
--- NOTE | 2016-09-01 23:00 | EKG ---
Date Performed: 09/01/2016 Time Performed: 06:55:23 PTAGE: 60 years EKG: Sinus rhythm NORMAL ECG PREVIOUS TRACING : 02/08/2014 11.13 Compared to prior tracing no significant change DOCTOR: Brit Ch Interpretating Date/Time 09/01/2016 22:58:53
[2016-09-02 00:26] VITALS: BP 115/57; PULSE 75; RESP 18; TEMP 97.6; O2SAT 95
[2016-09-02] MEDS: ACETAMINOPHEN/HYDROcodone 325 MG/7.5 MG TAB PO PRN ×4 (02:17→20:03)
[2016-09-02 04:17] VITALS: BP 99/54; PULSE 69; RESP 17; TEMP 96.9; O2SAT 97
[2016-09-02] MEDS: SODIUM CHLOR 0.9% 1000 ML INJ 1,000 ML IV SCH ×2 (05:48→07:36)
[2016-09-02 06:49] LABS: HEMATOCRIT 32.1 % (35.0-46.0); MEAN CELL VOLUME 84.9 FL (80.0-100.0); MEAN CORPUSCULAR HEMOGLOBIN 27.9 PG (27.0-34.0); MEAN CORPUSCULAR HGB CONC 32.9 % (32.0-36.0); PLATELET COUNT 425 TH/MM3 (150-450); RED BLOOD COUNT 3.79 MIL/MM3 (4.00-5.30); RED CELL DISTRIBUTION WIDTH 14.8 % (11.6-17.2); REVIEW FLAG FINAL; WHITE BLOOD COUNT 4.7 TH/MM3 (4.0-11.0)
[2016-09-02 07:04] LABS: BICARBONATE 26.9 MEQ/L (21.0-32.0); POTASSIUM 3.9 MEQ/L (3.5-5.1)
--- NOTE | 2016-09-02 07:19 | PD.ORT.PN ---
Subjective Subjective Remarks POD 1 s/p I&D right shoulder doing well. reports pain but improved Objective Vitals Vital Signs Date Time Temp Pulse Resp B/P Pulse Ox O2 Delivery O2 Flow Rate FiO2 09/02/16 04:17 96.9 69 17 99/54 97 09/02/16 03:17 18 09/02/16 00:26 97.6 75 18 115/57 95 09/01/16 22:16 18 09/01/16 20:26 98.1 82 17 96/58 95 09/01/16 16:00 95.7 67 15 102/56 94 09/01/16 12:00 96.2 75 16 112/56 93 09/01/16 09:52 95.6 77 18 118/62 90 09/01/16 08:45 83 18 126/58 97 Nasal Cannula 2 09/01/16 08:30 83 16 103/69 94 Nasal Cannula 2 09/01/16 08:23 98.5 88 16 94/67 97 Nasal Cannula 2 I/O 09/01/16 09/01/16 09/01/16 09/02/16 09/02/16 09/02/16 07:00 15:00 23:00 07:00 15:00 23:00 Intake Total 874 ml 957 ml 919 ml 1238 ml Output Total 30 ml 1 ml 0 ml Balance 874 ml 927 ml 918 ml 1238 ml Intake Oral 645 ml 480 ml 360 ml IV Total 874 ml 312 ml 439 ml 878 ml Output Drainage Total 30 ml 1 ml 0 ml # Voids 3 3 3 3 # Bowel Movements 0 Result Diagram: 09/02/16 0550 09/02/16 0550 Other Results Microbiology Date/Time Procedure Status Source Growth 09/01/16 08:03 Gram Stain - Final Resulted Fluid Other 09/01/16 08:03 Body Fluid Culture Resulted Fluid Other Pending 09/01/16 08:03 Acid Fast Stain Received Fluid Other Pending 09/01/16 08:03 Mycobacterial Culture Received Fluid Other Pending 09/01/16 08:03 Gram Stain - Final Resulted Fluid Other 09/01/16 08:03 Body Fluid Culture Resulted Fluid Other Pending 09/01/16 08:03 Acid Fast Stain Received Fluid Other Pending 09/01/16 08:03 Mycobacterial Culture Received Fluid Other Pending 09/01/16 08:03 Fungal Smear - Final Resulted Fluid Other NO FUNGAL ELEMENTS SEEN. 09/01/16 08:03 Fungal Culture Resulted Fluid Other Pending 09/01/16 08:03 Fungal Smear - Final Resulted Fluid Other NO FUNGAL ELEMENTS SEEN. 09/01/16 08:03 Fungal Culture Resulted Fluid Other Pending Imaging Last 72 hours Impressions Upper Extremity CT 08/31/16 0000 Signed Impressions: Service Date/Time: Wednesday, August 31, 2016 12:07 - CONCLUSION: 1. Large rim-enhancing fluid collection as described above characteristic of an abscess. Diego Pierre MD Objective Remarks RUE: dressings clean and dry. intact. +drain. NVI Assessment & Plan Assessment and Plan 1) Right Shoulder Abscess s/p I&D - POD 1 -dressing changes POD 2 -maintain drain -WBAT -will follow cultures for Abx tailoring [place] Sep 02, 2016 07:19
[2016-09-02] MEDS: DOCUSATE SODIUM 50 MG/SENNA 8.6 MG TAB PO SCH ×2 (07:33→19:29)
[2016-09-02] MEDS: NICOTINE 7 MG/24 HR PATCH T-DERMAL SCH (07:34)
[2016-09-02] MEDS: REMOVE OLD PATCH T-DERMAL SCH (07:34)
[2016-09-02 08:00] VITALS: BP 93/55; PULSE 64; RESP 17; TEMP 97.5; O2SAT 93
[2016-09-02] MEDS: SODIUM CHLORIDE 0.9% FLUSH 5 ML FLUSH IVF SCH ×2 (09:00→19:27)
--- NOTE | 2016-09-02 10:05 | HHI.PR ---
Subjective Remarks Patient has some pain at surgical site pain medications are helping Alert oriented Offering no other complaint Lying on bed without any apparent distress Objective Objective Results - Vital Signs Date Time Temp Pulse Resp B/P Pulse Ox O2 Delivery O2 Flow Rate FiO2 09/02/16 08:00 97.5 64 17 93/55 93 09/02/16 04:17 96.9 69 17 99/54 97 09/02/16 03:17 18 09/02/16 00:26 97.6 75 18 115/57 95 09/01/16 22:16 18 09/01/16 20:26 98.1 82 17 96/58 95 09/01/16 16:00 95.7 67 15 102/56 94 09/01/16 12:00 96.2 75 16 112/56 93 I/O 09/01/16 09/01/16 09/01/16 09/02/16 09/02/16 09/02/16 07:00 15:00 23:00 07:00 15:00 23:00 Intake Total 874 ml 957 ml 919 ml 1238 ml Output Total 30 ml 1 ml 0 ml Balance 874 ml 927 ml 918 ml 1238 ml Intake Oral 645 ml 480 ml 360 ml IV Total 874 ml 312 ml 439 ml 878 ml Output Drainage Total 30 ml 1 ml 0 ml # Voids 3 3 3 3 # Bowel Movements 0 Result Diagram: 09/02/16 0550 09/02/16 0550 Imaging Last Impressions Upper Extremity CT 08/31/16 0000 Signed Impressions: Service Date/Time: Wednesday, August 31, 2016 12:07 - CONCLUSION: 1. Large rim-enhancing fluid collection as described above characteristic of an abscess. Diego Pierre MD Other Results Laboratory Tests Test 09/02/16 05:50 White Blood Count 4.7 Red Blood Count 3.79 Hemoglobin 10.6 Hematocrit 32.1 Mean Corpuscular Volume 84.9 Mean Corpuscular Hemoglobin 27.9 Mean Corpuscular Hemoglobin 32.9 Concent Red Cell Distribution Width 14.8 Platelet Count 425 Mean Platelet Volume 7.7 Sodium Level 140 Potassium Level 3.9 Chloride Level 107 Carbon Dioxide Level 26.9 Anion Gap 6 Blood Urea Nitrogen 4 Creatinine 0.59 Estimat Glomerular Filtration 104 Rate Random Glucose 83 Calcium Level 8.4 Date/Time Procedure Status Source Growth 09/01/16 08:03 Gram Stain - Final Resulted Fluid Other 09/01/16 08:03 Body Fluid Culture Resulted Fluid Other Pending 09/01/16 08:03 Fungal Smear - Final Resulted Fluid Other NO FUNGAL ELEMENTS SEEN. 09/01/16 08:03 Fungal Culture Resulted Fluid Other Pending 09/01/16 08:03 Acid Fast Stain Received Fluid Other Pending 09/01/16 08:03 Mycobacterial Culture Received Fluid Other Pending Physical Exam Physical Exam GENERAL: This is a well-nourished, well-developed patient, in no apparent distress. SKIN: Dressing on the right shoulder HEAD: Atraumatic. Normocephalic. EYES: Extraocular motions intact. No scleral icterus. No injection or drainage. ENT: Airway patent. NECK: Trachea midline. Supple CARDIOVASCULAR: Regular rate and rhythm without murmurs, gallops, or rubs. RESPIRATORY: Clear to auscultation. Breath sounds equal bilaterally. No wheezes , rales, or rhonchi. GASTROINTESTINAL: Abdomen soft, non-tender, nondistended. No hepato-splenomegaly , or palpable masses. No guarding. MUSCULOSKELETAL: Dressing on the right shoulder with drainage tube NEUROLOGICAL: Awake and alert and oriented x 4. No focal deficits. A/P Assessment and Plan (1) Shoulder pain (2) Abscess of right shoulder (3) Cellulitis (4) Schizophrenia (5) Tobacco abuse Plan 60-year-old female presented to emergency room with complaint of right shoulder pain, increased erythema and tenderness. She has an area of fluctuation. CT of the shoulder shows large fluid collection that extends into the glenohumeral joint. Right shoulder cellulitis with abscess Continue with Levaquin, sensitivity from culture is noted. -Monitor labs. Labs reviewed from today Orthopedic surgeon consultation and help appreciated. Postop day #0, right shoulder I/D COPD, stable Tobacco abuse DuoNeb's as needed -Tobacco abuse counseling, agreeable with nicotine patch History of schizophrenia, depression and anxiety Patient is not on any maintenance medication Patient will be monitored closely -At present she is a stable Home medications reviewed, initiated as indicated SCDs for DVT prophylaxis Plan of care has been discussed with the patient. Encourage more ambulation and increase activity further management of the patient will be dependent on the hospital course Jean Crespo MD Sep 02, 2016 10:05
[2016-09-02 12:00] VITALS: BP 98/56; PULSE 72; RESP 18; TEMP 97.3; O2SAT 95
[2016-09-02] MEDS: LEVOFLOXACIN 500 MG PREMIX INJ 100 ML IV SCH (14:14)
--- NOTE | 2016-09-02 15:02 | MB ---
cc: TYLER CHARLES MD DATE OF CONSULTATION: 09/02/[address] Crespo REASON FOR CONSULTATION: Shoulder infection. HISTORY OF PRESENT ILLNESS This is a 60-year-old white female who developed pain in her right shoulder approximately 10 days ago. The patient was evaluated at [facility] and was given pain medication. An x-ray showed no acute changes of the shoulder. She was followed up by primary physician, she is unchanged on August 24 and was given p.o. Keflex. She had developed a lump at the right shoulder and the pain persisted. She saw her orthopedic physician who followed her up for a meniscus in the right knee and then she mentioned the problems at the shoulder. At the time she had a lump with increased warmth and she states that he aspirated the shoulder. She was already on Keflex which was started on August 24 and he placed her on Bactrim in addition which she continued to take. The pain became very severe and therefore she presented for further evaluation and was admitted to the hospital on August 31. She was being evaluated by orthopedics and was taken to surgery yesterday for I&D of the shoulder. She was noted to have the shoulder abscess along with septic arthritis and a chronic rotator cuff tear. Cultures were taken and culture preliminary growth of gram-negative mely. The patient states that she was having nausea and just felt generally tired over the last few days. She is afebrile. White blood cell count is normal. PAST MEDICAL HISTORY 1. Schizophrenia 2. Depression. 3. Anxiety disorder 4. COPD 5. Gastroesophageal reflux disease 6. History of esophagitis. 7. Esophageal ulcer 8. Ovarian cyst surgery at age 22. 9. Right eye surgery. ALLERGIES E-Mycin HALDOL MELLARIL STELAZINE THORAZINE MEDICATIONS 1. Levaquin. 2. Nicotine patch. 3. [place] 7.5 p.r.n. 4. Morphine sulfate p.r.n. 5. Daniella Colace. SOCIAL HISTORY The patient smokes three cigarettes a day. She drinks alcohol occasional. The patient uses marijuana. FAMILY HISTORY Noncontributory. REVIEW OF SYSTEMS Negative on 10-point review except for pain in the right shoulder. PHYSICAL EXAMINATION: IN GENERAL: Physical exam this is a well-developed female, who is in no acute distress. She is awake, alert and oriented. VITAL SIGNS: Temperature of 97.3, BP 98/56, respirations 18, heart rate 72. HEAD, EYES, EARS, NOSE, AND THROAT: Extraocular movements grossly intact, pupils reactive to light. No icterus. Oropharynx no visible lesions. NECK: The neck is supple. No adenopathy. LUNGS: Clear breath sounds bilateral. HEART: Regular S1, S2, without murmurs, rubs or gallops. ABDOMEN: Bowel sounds present, soft, nontender. RECTUM: Rectal was not preformed. EXTREMITIES: The right shoulder has swelling. There is a drainage catheter in the shoulder which has serosanguineous drainage in the catheter. SKIN: No diffuse rash. NEUROLOGIC: Nonfocal. PSYCHIATRIC: The patient is calm and cooperative. LABORATORY DATA WBC 4.7, platelets 425, hemoglobin 10.6, creatinine 0.59, BUN 4, sodium 140. IMPRESSION Abscess of the right shoulder. Patient status post I&D. Culture of the wound has gram-negative mely. Final identity pending. RECOMMENDATIONS 1. Continue intravenous Levaquin. 2. Monitor the identity and sensitivity of the gram-negative bacteria. 3. Monitor clinical status. Thank you this consultation. I will follow the patient's progress with you and will make further recommendations on followup if necessary. Tyler Charles MD FD/flavia /1:26 PM /2:44 PM
[2016-09-02 16:00] VITALS: BP 118/70; PULSE 76; RESP 18; TEMP 98.1; O2SAT 98
[2016-09-02 20:24] VITALS: BP 115/59; PULSE 78; RESP 17; TEMP 96.6; O2SAT 95
[2016-09-03 00:23] VITALS: BP 124/78; PULSE 68; RESP 17; TEMP 98.3; O2SAT 96
[2016-09-03] MEDS: MORPHINE SULFATE 4 MG/ML INJ IV PUSH PRN ×4 (00:36→23:27)
[2016-09-03] MEDS: SODIUM CHLOR 0.9% 1000 ML INJ 1,000 ML IV SCH ×3 (01:23→21:48)
[2016-09-03] MEDS: ACETAMINOPHEN/HYDROcodone 325 MG/7.5 MG TAB PO PRN ×3 (02:03→18:04)
[2016-09-03] MEDS ORDERED: HYDR-3288 PO (07:23)
--- NOTE | 2016-09-03 07:25 | HHI.FF ---
Face to Face Verification Diagnosis: (1) Abscess of right shoulder Occupational Therapy Right UE Weight Bearing: WB as tolerated Right UE Range of Motion: Passive ROM Nursing Nursing: Drain care, Dressing changes, Other (IV antibiotics) Dressing Changes: Xeroform, Coverderm/Primapore I have seen patient Selena Frank on 09/03/16. My clinical findings support the need for the requested home health care services because: Limited ability to care for self I certify that my clinical findings support that this patient is homebound because: Post-op weakness Abhishek Sims Jr. Sep 03, 2016 07:25
--- NOTE | 2016-09-03 07:31 | PD.ORT.PN ---
Subjective Subjective Remarks pain controlled Objective Vitals Vital Signs Date Time Temp Pulse Resp B/P Pulse Ox O2 Delivery O2 Flow Rate FiO2 09/03/16 06:12 18 09/03/16 03:03 18 09/03/16 00:23 98.3 68 17 124/78 96 09/02/16 20:24 96.6 78 17 115/59 95 09/02/16 16:00 98.1 76 18 118/70 98 09/02/16 12:00 97.3 72 18 98/56 95 09/02/16 08:00 97.5 64 17 93/55 93 I/O 09/02/16 09/02/16 09/02/16 09/03/16 09/03/16 09/03/16 07:00 15:00 23:00 07:00 15:00 23:00 Intake Total 1238 ml 1472 ml 915 ml 1327 ml Output Total 0 ml 30 ml 8 ml 4 ml Balance 1238 ml 1442 ml 907 ml 1323 ml Intake Oral 360 ml 475 ml 480 ml 480 ml IV Total 878 ml 997 ml 435 ml 847 ml Output Drainage Total 0 ml 30 ml 8 ml 4 ml # Voids 3 4 3 3 # Bowel Movements 0 Result Diagram: 09/02/16 0550 09/02/16 0550 Imaging Last 72 hours Impressions Upper Extremity CT 08/31/16 0000 Signed Impressions: Service Date/Time: Wednesday, August 31, 2016 12:07 - CONCLUSION: 1. Large rim-enhancing fluid collection as described above characteristic of an abscess. Diego Pierre MD Objective Remarks RUE: dressings clean and dry. intact. +drain. NVI Assessment & Plan Assessment and Plan 1) Right Shoulder Abscess s/p I&D - POD 2 -dressing changes -maintain drain with drain care -WBAT with PROM and AROM -will follow cultures for Abx tailoring We will plan on discharge once IV antibiotics are arranged. HHC will also need to be arranged. Follow up appt with Tanisha in 2 weeks Abhishek Sims Jr. Sep 03, 2016 07:31
[2016-09-03 08:00] VITALS: BP 122/73; PULSE 64; RESP 18; TEMP 95.7; O2SAT 97
[2016-09-03] MEDS: DOCUSATE SODIUM 50 MG/SENNA 8.6 MG TAB PO SCH ×2 (08:35→22:41)
[2016-09-03] MEDS: NICOTINE 7 MG/24 HR PATCH T-DERMAL SCH (08:36)
[2016-09-03] MEDS: SODIUM CHLORIDE 0.9% FLUSH 5 ML FLUSH IVF SCH ×2 (08:40→21:00)
--- NOTE | 2016-09-03 09:58 | HHI.PR ---
Subjective Remarks Patient has some pain at surgical site pain medications are helping Alert oriented Patient is walking without any problem Offering no other complaint Review of system for 10 point system otherwise unremarkable Objective Objective Results - Vital Signs Date Time Temp Pulse Resp B/P Pulse Ox O2 Delivery O2 Flow Rate FiO2 09/03/16 08:00 95.7 64 18 122/73 97 09/03/16 07:00 Room Air 09/03/16 06:12 18 09/03/16 03:03 18 09/03/16 00:23 98.3 68 17 124/78 96 09/02/16 20:24 96.6 78 17 115/59 95 09/02/16 16:00 98.1 76 18 118/70 98 09/02/16 12:00 97.3 72 18 98/56 95 I/O 09/02/16 09/02/16 09/02/16 09/03/16 09/03/16 09/03/16 07:00 15:00 23:00 07:00 15:00 23:00 Intake Total 1238 ml 1472 ml 915 ml 1327 ml Output Total 0 ml 30 ml 8 ml 4 ml Balance 1238 ml 1442 ml 907 ml 1323 ml Intake Oral 360 ml 475 ml 480 ml 480 ml IV Total 878 ml 997 ml 435 ml 847 ml Output Drainage Total 0 ml 30 ml 8 ml 4 ml # Voids 3 4 3 3 # Bowel Movements 0 Result Diagram: 09/02/16 0550 09/02/16 0550 Imaging Last Impressions Upper Extremity CT 08/31/16 0000 Signed Impressions: Service Date/Time: Wednesday, August 31, 2016 12:07 - CONCLUSION: 1. Large rim-enhancing fluid collection as described above characteristic of an abscess. Diego Pierre MD Other Results Date/Time Procedure Status Source Growth 09/01/16 08:03 Gram Stain - Final Complete Fluid Other 09/01/16 08:03 Body Fluid Culture - Final Complete [employer] 09/01/16 08:03 Fungal Smear - Final Resulted Fluid Other NO FUNGAL ELEMENTS SEEN. 09/01/16 08:03 Fungal Culture Resulted Fluid Other Pending 09/01/16 08:03 Acid Fast Stain - Final Resulted Fluid Other NO ACID FAST BACILLI SEEN 09/01/16 08:03 Mycobacterial Culture Resulted Fluid Other Pending Physical Exam Physical Exam GENERAL: This is a well-nourished, well-developed patient, in no apparent distress. SKIN: Dressing on the right shoulder HEAD: Atraumatic. Normocephalic. EYES: Extraocular motions intact. No scleral icterus. No injection or drainage. ENT: Airway patent. NECK: Trachea midline. Supple CARDIOVASCULAR: Regular rate and rhythm without murmurs, gallops, or rubs. RESPIRATORY: Clear to auscultation. Breath sounds equal bilaterally. No wheezes , rales, or rhonchi. GASTROINTESTINAL: Abdomen soft, non-tender, nondistended. No hepato-splenomegaly , or palpable masses. No guarding. MUSCULOSKELETAL: Dressing on the right shoulder with drainage tube NEUROLOGICAL: Awake and alert and oriented x 4. No focal deficits. A/P Assessment and Plan (1) Shoulder pain (2) Abscess of right shoulder (3) Cellulitis (4) Schizophrenia (5) Tobacco abuse Plan 60-year-old female presented to emergency room with complaint of right shoulder pain, increased erythema and tenderness. She has an area of fluctuation. CT of the shoulder shows large fluid collection that extends into the glenohumeral joint. Right shoulder cellulitis with abscess Continue with Levaquin, sensitivity from culture is noted. Appreciate infectious disease consult. Antibiotics as per ID -Monitor labs. Labs reviewed from today Orthopedic surgeon consultation and help appreciated. COPD, stable Tobacco abuse DuoNeb's as needed -Tobacco abuse counseling, agreeable with nicotine patch History of schizophrenia, depression and anxiety Patient is not on any maintenance medication Patient will be monitored closely -At present she is a stable Home medications reviewed, initiated as indicated SCDs for DVT prophylaxis Plan of care has been discussed with the patient. Encourage more ambulation and increase activity further management of the patient will be dependent on the hospital course Jean Crespo MD Sep 03, 2016 09:58
[2016-09-03 12:00] VITALS: BP 108/69; PULSE 67; RESP 18; TEMP 96.1; O2SAT 100
--- NOTE | 2016-09-03 13:22 | HHI.IDPN ---
Note Infectious Disease Note Patient has no complaint. Afebrile. SHAD drain in place at R shoulder. Wound culture growing Pant[place] Agglomerans. PAST MEDICAL HISTORY 1. Schizophrenia 2. Depression. 3. Anxiety disorder 4. COPD 5. Gastroesophageal reflux disease 6. History of esophagitis. 7. Esophageal ulcer 8. Ovarian cyst surgery at age 22. 9. Right eye surgery. ALLERGIES E-Mycin HALDOL MELLARIL STELAZINE THORAZINE ANTIBIOTICS Levaquin. SOCIAL HISTORY The patient smokes three cigarettes a day. She drinks alcohol occasional. The patient uses marijuana. FAMILY HISTORY Noncontributory. REVIEW OF SYSTEMS Negative on 10-point review except for pain in the right shoulder. OBJECTIVE: Vital Signs Date Time Temp Pulse Resp B/P Pulse Ox O2 Delivery O2 Flow Rate FiO2 09/03/16 12:00 96.1 67 18 108/69 100 09/03/16 08:00 95.7 64 18 122/73 97 09/03/16 07:00 Room Air 09/03/16 06:12 18 09/03/16 03:03 18 09/03/16 00:23 98.3 68 17 124/78 96 09/02/16 20:24 96.6 78 17 115/59 95 09/02/16 16:00 98.1 76 18 118/70 98 Laboratory Tests Test 09/02/16 05:50 White Blood Count 4.7 TH/MM3 Red Blood Count 3.79 MIL/MM3 Hemoglobin 10.6 GM/DL Hematocrit 32.1 % Mean Corpuscular Volume 84.9 FL Mean Corpuscular Hemoglobin 27.9 PG Mean Corpuscular Hemoglobin 32.9 % Concent Red Cell Distribution Width 14.8 % Platelet Count 425 TH/MM3 Mean Platelet Volume 7.7 FL Laboratory Tests Test 09/02/16 05:50 Sodium Level 140 MEQ/L Potassium Level 3.9 MEQ/L Chloride Level 107 MEQ/L Carbon Dioxide Level 26.9 MEQ/L Anion Gap 6 MEQ/L Blood Urea Nitrogen 4 MG/DL Creatinine 0.59 MG/DL Estimat Glomerular Filtration 104 ML/MIN Rate Random Glucose 83 MG/DL Calcium Level 8.4 MG/DL Microbiology Date/Time Procedure Status Source Growth 09/01/16 08:03 Gram Stain - Final Complete Fluid Other 09/01/16 08:03 Body Fluid Culture - Final Complete [place] 09/01/16 08:03 Acid Fast Stain - Final Resulted Fluid Other NO ACID FAST BACILLI SEEN 09/01/16 08:03 Mycobacterial Culture Resulted Fluid Other Pending 09/01/16 08:03 Gram Stain - Final Complete Fluid Other 09/01/16 08:03 Body Fluid Culture - Final Complete [place] 09/01/16 08:03 Acid Fast Stain - Final Resulted Fluid Other NO ACID FAST BACILLI SEEN 09/01/16 08:03 Mycobacterial Culture Resulted Fluid Other Pending 09/01/16 08:03 Fungal Smear - Final Resulted Fluid Other NO FUNGAL ELEMENTS SEEN. 09/01/16 08:03 Fungal Culture Resulted Fluid Other Pending 09/01/16 08:03 Fungal Smear - Final Resulted Fluid Other NO FUNGAL ELEMENTS SEEN. 09/01/16 08:03 Fungal Culture Resulted Fluid Other Pending PHYSICAL EXAMINATION: GENERAL: No acute distress. She is awake, alert and oriented. HEAD, EYES, EARS, NOSE, AND THROAT: Extraocular movements grossly intact, pupils reactive to light. No icterus. Oropharynx no visible lesions. NECK: Supple. No adenopathy. LUNGS: Clear breath sounds. HEART: Regular S1, S2, without murmurs, rubs or gallops. ABDOMEN: Bowel sounds present, soft, nontender. EXTREMITIES: The right shoulder has swelling. The drainage catheter in the shoulder has serosanguineous drainage in the catheter. mild edema. SKIN: No diffuse rash. NEUROLOGIC: Nonfocal. PSYCHIATRIC: The patient is calm and cooperative. IMPRESSION Abscess of the right shoulder. [employer]. Patient status post I&D. RECOMMENDATIONS Continue intravenous Levaquin. Treat for 2 weeks. Patient notes that she has been evicted from her home and she is relocating to [place], [place] in a few days. It is okay to give PO Cipro 750 mg PO BID and have her follow up with an infectious disease doctor in [place] to reestablish intravenous treatment and follow up. Discussed with Dr. Crespo. Odell Goodman MD Sep 03, 2016 13:22
[2016-09-03] MEDS: LEVOFLOXACIN 500 MG PREMIX INJ 100 ML IV SCH (14:10)
[2016-09-03 16:00] VITALS: BP 110/67; PULSE 64; RESP 18; TEMP 96.4; O2SAT 99
[2016-09-03 20:00] VITALS: BP 105/60; PULSE 66; RESP 18; TEMP 97.6; O2SAT 93
[2016-09-03] MEDS: REMOVE OLD PATCH T-DERMAL SCH (21:00)
[2016-09-04] VITALS: BP 121/63; PULSE 66; RESP 18; TEMP 98.2; O2SAT 95
[2016-09-04] MEDS: ACETAMINOPHEN/HYDROcodone 325 MG/7.5 MG TAB PO PRN ×4 (01:12→20:53)
[2016-09-04] MEDS: MORPHINE SULFATE 4 MG/ML INJ IV PUSH PRN (02:46)
[2016-09-04] MEDS: NICOTINE 7 MG/24 HR PATCH T-DERMAL SCH (07:49)
[2016-09-04] MEDS: SODIUM CHLORIDE 0.9% FLUSH 5 ML FLUSH IVF SCH ×2 (07:49→20:53)
[2016-09-04] MEDS: DOCUSATE SODIUM 50 MG/SENNA 8.6 MG TAB PO SCH ×2 (07:49→20:52)
[2016-09-04 08:00] VITALS: BP 102/66; PULSE 60; RESP 17; TEMP 96.9; O2SAT 97
[2016-09-04] MEDS: SODIUM CHLOR 0.9% 1000 ML INJ 1,000 ML IV SCH ×2 (09:20→17:48)
--- NOTE | 2016-09-04 10:57 | HHI.PR ---
Subjective Remarks Patient has some pain at surgical site pain medications are helping Alert oriented Patient is walking without any problem Offering no other complaint Review of system for 10 point system otherwise unremarkable As the patient she doesn't have to go to [place] now she is in [place] more than a month. Will arrange for IV antibiotic total of 2 weeks Objective Objective Results - Vital Signs Date Time Temp Pulse Resp B/P Pulse Ox O2 Delivery O2 Flow Rate FiO2 09/04/16 08:10 Room Air 09/04/16 08:00 96.9 60 17 102/66 97 09/04/16 00:00 98.2 66 18 121/63 95 09/03/16 20:00 97.6 66 18 105/60 93 09/03/16 16:00 96.4 64 18 110/67 99 09/03/16 12:00 96.1 67 18 108/69 100 I/O 09/03/16 09/03/16 09/03/16 09/04/16 09/04/16 09/04/16 07:00 15:00 23:00 07:00 15:00 23:00 Intake Total 1327 ml 240 ml 633 ml 793 ml 120 ml Output Total 4 ml 30 ml 30 ml Balance 1323 ml 240 ml 603 ml 763 ml 120 ml Intake Oral 480 ml 240 ml 600 ml 480 ml 120 ml IV Total 847 ml 33 ml 313 ml Output Drainage Total 4 ml 30 ml 30 ml # Voids 3 1 2 4 # Bowel Movements 0 0 Result Diagram: 09/02/16 0550 09/02/16 0550 Imaging Last Impressions Upper Extremity CT 08/31/16 0000 Signed Impressions: Service Date/Time: Wednesday, August 31, 2016 12:07 - CONCLUSION: 1. Large rim-enhancing fluid collection as described above characteristic of an abscess. Diego Pierre MD Other Results Date/Time Procedure Status Source Growth 09/01/16 08:03 Gram Stain - Final Complete Fluid Other 09/01/16 08:03 Body Fluid Culture - Final Complete [employer] 09/01/16 08:03 Fungal Smear - Final Resulted Fluid Other NO FUNGAL ELEMENTS SEEN. 09/01/16 08:03 Fungal Culture Resulted Fluid Other Pending 09/01/16 08:03 Acid Fast Stain - Final Resulted Fluid Other NO ACID FAST BACILLI SEEN 09/01/16 08:03 Mycobacterial Culture Resulted Fluid Other Pending Physical Exam Physical Exam GENERAL: This is a well-nourished, well-developed patient, in no apparent distress. SKIN: Dressing on the right shoulder HEAD: Atraumatic. Normocephalic. EYES: Extraocular motions intact. No scleral icterus. No injection or drainage. ENT: Airway patent. NECK: Trachea midline. Supple CARDIOVASCULAR: Regular rate and rhythm without murmurs, gallops, or rubs. RESPIRATORY: Clear to auscultation. Breath sounds equal bilaterally. No wheezes , rales, or rhonchi. GASTROINTESTINAL: Abdomen soft, non-tender, nondistended. No hepato-splenomegaly , or palpable masses. No guarding. MUSCULOSKELETAL: Dressing on the right shoulder with drainage tube NEUROLOGICAL: Awake and alert and oriented x 4. No focal deficits. A/P Assessment and Plan (1) Shoulder pain (2) Abscess of right shoulder (3) Cellulitis (4) Schizophrenia (5) Tobacco abuse Plan 60-year-old female presented to emergency room with complaint of right shoulder pain, increased erythema and tenderness. She has an area of fluctuation. CT of the shoulder shows large fluid collection that extends into the glenohumeral joint. Right shoulder cellulitis with abscess Continue with Levaquin, sensitivity from culture is noted. Appreciate infectious disease consult. Antibiotics as per ID, discussed with him yesterday -Monitor labs. Labs reviewed from today Orthopedic surgeon consultation and help appreciated. Discussed with RN about PICC line. PICC line ordered Discussed with correctional case records supervisor about DC with IV antibiotic hopefully tomorrow. And to arrange transportation to her home COPD, stable Tobacco abuse DuoNeb's as needed -Tobacco abuse counseling, agreeable with nicotine patch History of schizophrenia, depression and anxiety Patient is not on any maintenance medication Patient will be monitored closely -At present she is a stable Home medications reviewed, initiated as indicated SCDs for DVT prophylaxis Plan of care has been discussed with the patient. Encourage more ambulation and increase activity further management of the patient will be dependent on the hospital course Jean Crespo MD Sep 04, 2016 10:57
[2016-09-04 12:00] VITALS: BP 126/68; PULSE 65; RESP 19; TEMP 96.9; O2SAT 97
[2016-09-04 12:52] LABS: PROTHROMBIN TIME - PATIENT 10.7 SEC (9.8-11.6)
[2016-09-04] MEDS ORDERED: SODIUM CHLORIDE 0.9% FLUSH 10 ML FLUSH IV FLUSH PRN (15:00)
--- NOTE | 2016-09-04 15:27 | RADRPT ---
EXAM DATE/TIME: 09/04/2016 14:38 [facility] COMPARISON: CHEST SINGLE AP, January 12, 2016, 16:52. INDICATIONS : Evaluate for picc line placement. MEDICAL HISTORY : Chronic obstructive pulmonary disease. SURGICAL HISTORY : None. ENCOUNTER: Subsequent ACUITY: 1 day PAIN SCORE: Non-responsive. LOCATION: chest FINDINGS: A single view of the chest demonstrates a left PICC line in superior vena cava. No focal consolidatio n or effusion. No pneumothorax. Tortuous aorta. CONCLUSION: 1. Left PICC line tip in superior vena cava. Minimal basilar atelectasis. Adams Hester MD on September 04, 2016 at 15:24 Board Certified Radiologist. This report was verified electronically.
[2016-09-04] MEDS: LEVOFLOXACIN 500 MG PREMIX INJ 100 ML IV SCH (15:43)
--- NOTE | 2016-09-04 15:50 | PD.ORT.PN ---
Subjective Subjective Remarks Patient comfortable. Pain controlled. Objective Vitals Vital Signs Date Time Temp Pulse Resp B/P Pulse Ox O2 Delivery O2 Flow Rate FiO2 09/04/16 12:00 96.9 65 19 126/68 97 09/04/16 08:10 Room Air 09/04/16 08:00 96.9 60 17 102/66 97 09/04/16 00:00 98.2 66 18 121/63 95 09/03/16 20:00 97.6 66 18 105/60 93 09/03/16 16:00 96.4 64 18 110/67 99 I/O 09/03/16 09/03/16 09/03/16 09/04/16 09/04/16 09/04/16 07:00 15:00 23:00 07:00 15:00 23:00 Intake Total 1327 ml 240 ml 633 ml 793 ml 1616 ml Output Total 4 ml 30 ml 30 ml 701 ml Balance 1323 ml 240 ml 603 ml 763 ml 915 ml Intake Oral 480 ml 240 ml 600 ml 480 ml 1080 ml IV Total 847 ml 33 ml 313 ml 536 ml Output Urine Total 700 ml Stool Total 1 ml Drainage Total 4 ml 30 ml 30 ml # Voids 3 1 2 4 # Bowel Movements 0 0 Result Diagram: 09/02/16 0550 09/02/16 0550 Other Results Laboratory Tests Test 09/04/16 12:12 Prothrombin Time 10.7 SEC (9.8-11.6) Prothromb Time International 1.0 RATIO Ratio Imaging Last 72 hours Impressions Upper Extremity CT 08/31/16 0000 Signed Impressions: Service Date/Time: Wednesday, August 31, 2016 12:07 - CONCLUSION: 1. Large rim-enhancing fluid collection as described above characteristic of an abscess. Diego Pierre MD Objective Remarks RUE: dressings C/D/I. Drain removed. NVI Assessment & Plan Assessment and Plan 1) Right Shoulder Abscess s/p I&D - POD 3 -dressing changes -PICC line in place -WBAT with PROM and AROM -wound culture: pantoea agglomerans -continue IV antibiotic therapy per ID We will plan on discharge once IV antibiotics are arranged. HHC will also need to be arranged. Follow up appt with Tanisha in 2 weeks Andry Daigle Sep 04, 2016 15:50
[2016-09-04 16:00] VITALS: BP 132/65; PULSE 64; RESP 19; TEMP 97.1; O2SAT 96
[2016-09-04 20:00] VITALS: BP 129/60; PULSE 65; RESP 20; TEMP 98; O2SAT 96
[2016-09-04] MEDS: REMOVE OLD PATCH T-DERMAL SCH (20:55)
[2016-09-05] VITALS: BP 131/62; PULSE 62; RESP 20; TEMP 97.6; O2SAT 95
[2016-09-05] MEDS: ACETAMINOPHEN/HYDROcodone 325 MG/7.5 MG TAB PO PRN ×3 (02:48→15:28)
[2016-09-05] MEDS: SODIUM CHLOR 0.9% 1000 ML INJ 1,000 ML IV SCH ×2 (03:58→14:15)
[2016-09-05 08:00] VITALS: BP 132/61; PULSE 65; RESP 19; TEMP 97.6; O2SAT 95
[2016-09-05] MEDS: SODIUM CHLORIDE 0.9% FLUSH 5 ML FLUSH IVF SCH (09:00)
[2016-09-05] MEDS ORDERED: SODIUM CHLORIDE 0.9% FLUSH 10 ML FLUSH IV FLUSH SCH (09:00)
[2016-09-05] MEDS: DOCUSATE SODIUM 50 MG/SENNA 8.6 MG TAB PO SCH (09:00)
[2016-09-05] MEDS: NICOTINE 7 MG/24 HR PATCH T-DERMAL SCH (09:09)
--- NOTE | 2016-09-05 09:52 | PD.ORT.PN ---
Subjective Subjective Remarks Patient states minimal pain to right shoulder. NAD. Objective Vitals Vital Signs Date Time Temp Pulse Resp B/P Pulse Ox O2 Delivery O2 Flow Rate FiO2 09/05/16 08:00 97.6 65 19 132/61 95 09/05/16 00:00 97.6 62 20 131/62 95 09/04/16 20:00 98.0 65 20 129/60 96 09/04/16 16:00 97.1 64 19 132/65 96 09/04/16 12:00 96.9 65 19 126/68 97 I/O 09/04/16 09/04/16 09/04/16 09/05/16 09/05/16 09/05/16 07:00 15:00 23:00 07:00 15:00 23:00 Intake Total 793 ml 1616 ml 982 ml 480 ml 240 ml Output Total 30 ml 701 ml Balance 763 ml 915 ml 982 ml 480 ml 240 ml Intake Oral 480 ml 1080 ml 480 ml 480 ml 240 ml IV Total 313 ml 536 ml 502 ml Output Urine Total 700 ml Stool Total 1 ml Drainage Total 30 ml # Voids 4 2 4 # Bowel Movements 0 0 0 Result Diagram: 09/02/16 0550 09/02/16 0550 Other Results Laboratory Tests Test 09/04/16 12:12 Prothrombin Time 10.7 SEC (9.8-11.6) Prothromb Time International 1.0 RATIO Ratio Imaging Last 72 hours Impressions Upper Extremity CT 08/31/16 0000 Signed Impressions: Service Date/Time: Wednesday, August 31, 2016 12:07 - CONCLUSION: 1. Large rim-enhancing fluid collection as described above characteristic of an abscess. Diego Pierre MD Objective Remarks RUE: dressings C/D/I. sling in place NVI Assessment & Plan Assessment and Plan 1) Right Shoulder Abscess s/p I&D - POD 4 -dressing changes -PICC line in place -WBAT with PROM and AROM -wound culture: pantoea agglomerans -continue IV antibiotic therapy per ID Orthopedically stable for discharge We will plan on discharge once IV antibiotics are arranged. HHC will also need to be arranged. Follow up appt with Tanisha in 2 weeks Andry Daigle SURGICAL COORDINATOR Sep 05, 2016 09:52
[2016-09-05 11:48] VITALS: BP 123/58; PULSE 60; RESP 17; TEMP 96.9; O2SAT 97
--- NOTE | 2016-09-05 13:11 | HHI.FF ---
Face to Face Verification Diagnosis: (1) COPD (chronic obstructive pulmonary disease) with acute bronchitis (2) Cellulitis (3) Abscess of right shoulder Occupational Therapy Order: Evaluate and Treat Home Health Nursing Order: IV medication administration I have seen patient Selena Frank on 09/05/16. My clinical findings support the need for the requested home health care services because: Patient has SOB I certify that my clinical findings support that this patient is homebound because: Unable to use public transportation Jean Crespo MD Sep 05, 2016 13:11
--- NOTE | 2016-09-05 13:13 | HHI.PR ---
Subjective Remarks Patient has some pain at surgical site pain medications are helping a lot Alert oriented Offering no other complaint Review of system for 10 point system otherwise unremarkable Objective Objective Results - Vital Signs Date Time Temp Pulse Resp B/P Pulse Ox O2 Delivery O2 Flow Rate FiO2 09/05/16 11:48 96.9 60 17 123/58 97 09/05/16 08:02 Room Air 09/05/16 08:00 97.6 65 19 132/61 95 09/05/16 00:00 97.6 62 20 131/62 95 09/04/16 20:00 98.0 65 20 129/60 96 09/04/16 16:00 97.1 64 19 132/65 96 I/O 09/04/16 09/04/16 09/04/16 09/05/16 09/05/16 09/05/16 07:00 15:00 23:00 07:00 15:00 23:00 Intake Total 793 ml 1616 ml 982 ml 480 ml 240 ml Output Total 30 ml 701 ml Balance 763 ml 915 ml 982 ml 480 ml 240 ml Intake Oral 480 ml 1080 ml 480 ml 480 ml 240 ml IV Total 313 ml 536 ml 502 ml Output Urine Total 700 ml Stool Total 1 ml Drainage Total 30 ml # Voids 4 2 4 # Bowel Movements 0 0 0 Result Diagram: 09/02/16 0550 09/02/16 0550 Imaging Last Impressions Upper Extremity CT 08/31/16 0000 Signed Impressions: Service Date/Time: Wednesday, August 31, 2016 12:07 - CONCLUSION: 1. Large rim-enhancing fluid collection as described above characteristic of an abscess. Diego Pierre MD Other Results Date/Time Procedure Status Source Growth 09/01/16 08:03 Gram Stain - Final Complete Fluid Other 09/01/16 08:03 Body Fluid Culture - Final Complete [employer] 09/01/16 08:03 Fungal Smear - Final Resulted Fluid Other NO FUNGAL ELEMENTS SEEN. 09/01/16 08:03 Fungal Culture Resulted Fluid Other Pending 09/01/16 08:03 Acid Fast Stain - Final Resulted Fluid Other NO ACID FAST BACILLI SEEN 09/01/16 08:03 Mycobacterial Culture Resulted Fluid Other Pending Physical Exam Physical Exam GENERAL: This is a well-nourished, well-developed patient, in no apparent distress. SKIN: Dressing on the right shoulder HEAD: Atraumatic. Normocephalic. EYES: Extraocular motions intact. No scleral icterus. No injection or drainage. ENT: Airway patent. NECK: Trachea midline. Supple CARDIOVASCULAR: Regular rate and rhythm without murmurs, gallops, or rubs. RESPIRATORY: Clear to auscultation. Breath sounds equal bilaterally. No wheezes , rales, or rhonchi. GASTROINTESTINAL: Abdomen soft, non-tender, nondistended. No hepato-splenomegaly , or palpable masses. No guarding. MUSCULOSKELETAL: Dressing on the right shoulder NEUROLOGICAL: Awake and alert and oriented x 4. No focal deficits. A/P Assessment and Plan (1) Shoulder pain (2) Abscess of right shoulder (3) Cellulitis (4) Schizophrenia (5) Tobacco abuse Plan 60-year-old female presented to emergency room with complaint of right shoulder pain, increased erythema and tenderness. She has an area of fluctuation. CT of the shoulder shows large fluid collection that extends into the glenohumeral joint. Right shoulder cellulitis with abscess Continue with Levaquin, sensitivity from culture is noted. Appreciate infectious disease consult. Antibiotics as per ID, discussed with him yesterday -Monitor labs. Labs reviewed from today Orthopedic surgeon consultation and help appreciated. Discussed with RN about PICC line. PICC line ordered Discussed with briefcase sewer , IV antibiotic arrangements. veterinary practice manager arrange transportation to her home today COPD, stable Tobacco abuse DuoNeb's as needed -Tobacco abuse counseling, agreeable with nicotine patch History of schizophrenia, depression and anxiety Patient is not on any maintenance medication Patient will be monitored closely -At present she is a stable Home medications reviewed, initiated as indicated SCDs for DVT prophylaxis Plan of care has been discussed with the patient. Encourage more ambulation and increase activity Plan to discharge her home with home health care for administration dressing and occupational therapy. Jean Crespo MD Sep 05, 2016 13:13
[2016-09-05] MEDS: LEVOFLOXACIN 500 MG PREMIX INJ 100 ML IV SCH (14:10)
[2016-09-05 16:00] VITALS: BP 125/57; PULSE 65; RESP 20; TEMP 96.9; O2SAT 95
--- NOTE | 2016-09-06 08:58 | HHI.FF ---
Infusion Therapy Location of Infusion Therapy: Home Health Care IV Infusion Order Patient Information Patient Weight 92 kg Diagnosis: (1) Abscess of right shoulder Coded Allergies: E-Mycin (Verified Adverse Reaction, Severe, INCREASED HR, 07/22/16) Haldol (Verified Adverse Reaction, Severe, LOWERS BP, 07/22/16) Mellaril (Verified Adverse Reaction, Severe, LOWERS BP, 07/22/16) Stelazine (Verified Adverse Reaction, Severe, LOWERS BP, 07/22/16) Thorazine (Verified Adverse Reaction, Severe, LOWERS BP, 07/22/16) Administer Medication Levaquin 750mg IV q24 hours Stop Treatment: Sep 19, 2016 Additional Information Venous access: PICC Line Additional Instructions [x] Peripheral flush and dressing changes per protocol [x] Implanted port and central aerosol line operator: * Implanted port: 10 ml Normal Saline followed by 5 ml Heparin 100 units/ml Heparin flush after each use and monthly to maintain. [] May leave port accessed during therapy. [] May leave peripheral site accessed for duration of therapy. [x] If patient has SOB or respiratory distress, check oxygen saturation. If less than 90% or clinical signs of respiratory distress, administer oxygen at 2 L/min. via nasal cannula and notify physician. [x] Anaphylaxis/Reaction orders: * Stop infusion. * Keep IV line open with saline flush. * Notify physician. * Monitor vital signs every 15 minutes until symptoms resolve. * Check Oxygen saturation; Oxygen at 2 L/min. via nasal cannula if less than 90% or clinical signs of respiratory distress. * Administer diphenhydramine (Benadryl) 25 mg IV STAT, (unless patient has received as pre-med). May repeat once, if necessary. * Solu-Cortef 250 mg IVP over 30-60 seconds, use 100 mg vials for each dissolution. * Epinephrine (1mg/1 ml) 0.3 mg subcutaneously or IVP now with any signs of respiratory distress. * Check with physician for new additional pre-med orders if patient is re- challenged or re-treated. [x] May remove PICC line when treatment complete, after confirming with Physician. [x] If the patient is admitted to the hospital, the ED, or transferred via [facility] , complete transfer form including medication reconciliation order sheet. Laboratory Tests Weekly Labs: BMP, LFT's (Hepatic function test) Additional Information Follow up with ID DR Wilson in one week Odell Goodman MD Sep 06, 2016 08:58
== END 2016-09-05 17:50 | disposition home health service (06) | DRG 502 ==
LOC: PHED 11:00 → PHEDA 13:47 → N07A 16:29
PROVIDERS: ADMIT Specialist; ATTEND Specialist
PROC: 0RBJ0ZZ Excision of Right Shoulder Joint, Open Approach (ICD-10-PCS; 2016-09-01)
PROC: 0MB10ZZ Excision of Right Shoulder Bursa and Ligament, Open Approach (ICD-10-PCS; principal; 2016-09-01 07:22)
PROC: 02HV33Z Insertion of Infusion Device into Superior Vena Cava, Percutaneous Approach (ICD-10-PCS; 2016-09-04)
PROC: B548ZZA Ultrasonography of Superior Vena Cava, Guidance (ICD-10-PCS; 2016-09-04)
DX: M00.811 Arthritis due to other bacteria, right shoulder (principal); B96.89 Other specified bacterial agents as the cause of diseases classified elsewhere; F20.9 Schizophrenia, unspecified; M75.101 Unspecified rotator cuff tear or rupture of right shoulder, not specified as traumatic; I10 Essential (primary) hypertension; F32.9 Major depressive disorder, single episode, unspecified; F41.9 Anxiety disorder, unspecified; E87.6 Hypokalemia; K21.9 Gastro-esophageal reflux disease without esophagitis; J44.9 Chronic obstructive pulmonary disease, unspecified; G89.29 Other chronic pain; R07.9 Chest pain, unspecified; F17.210 Nicotine dependence, cigarettes, uncomplicated; F12.90 Cannabis use, unspecified, uncomplicated; I25.2 Old myocardial infarction
CPT/HCPCS: 36569; 71010; 73201; 76937; 80048; 80053; 85025; 85027; 85610; 87015; 87070; 87077; 87102; 87116; 87186; 87205; 87206; 93005; 94150; J0131; J0690; J1580; J1642; J1956; J2250; J2270; J2370; J2405; J3010; J3370; J7030; J7050; Q9967

== ENCOUNTER 2017-03-03 11:55 | Emergency (ER) | payer MEDICARE, OTHER ==
[~2017-03-03] VITALS: Ht 170.2 cm; Wt 83.0 kg
[~2017-03-03 11:55] MED LIST changes: -COMPRESSOR NEBU1 MIS; +HYDR-3288 PO; -IBUP-232 PO; +LIDO1ADH4 TOPICAL; -LIDO5DIS5 TOPICAL; -PRED10PA2 PO; -PRED20 PO
[2017-03-03 12:02] VITALS: BP 107/67; PULSE 65; RESP 16; TEMP 98.5; O2SAT 96
[2017-03-03] MEDS ORDERED: OMEP40CA2 PO (12:29)
--- NOTE | 2017-03-03 13:34 | RADRPT ---
EXAM DATE/TIME: 03/03/2017 13:08 [facility] COMPARISON: No previous studies available for comparison. INDICATIONS : Left side rib pain below the breast with no known injury. MEDICAL HISTORY : Myelopathy. Hypercholesterolemia. Hepatitis A. IBS. Esophageal ulcer. Arthritis. Smoker. Thyroid disease. SURGICAL HISTORY : Ovarian cyst removed. ENCOUNTER: Initial ACUITY: 1 day PAIN SCORE: 7/10 LOCATION: Left chest FINDINGS: Lungs are hyperinflated. Diffuse interstitial prominence is noted. There are no consolidating airspace changes. There are no suspicious masses or effusions. Heart and mediastinal structures are unremarkable. CONCLUSION: 1. Nonspecific interstitial lung disease. 2. No evidence of consolidating airspace disease, suspicious masses or pleural effusions. Cecilio Patten MD on March 03, 2017 at 13:31 Board Certified Radiologist. This report was verified electronically.
--- NOTE | 2017-03-03 13:35 | PD ---
HPI Chief Complaint: Musculoskeletal Complaint Time Seen by Provider: 12:29 Travel History International Travel<30 days: No Contact w/Intl Traveler<30days: No Traveled to known affect area: No History of Present Illness HPI 61 -year-old female with left rib pain since this morning. Patient reports she may have slept on the area wrong or cause the pain by repeated coughing. She denies specific trauma to the area. The area is painful when pressed and with twisting motion. Relieved with rest. She denies chest pain or shortness of breath. Symptom severity is mild. PFSH Past Medical History Hx Anticoagulant Therapy: No Arthritis: Yes Blood Disorders: Yes Anxiety: Yes Depression: Yes Heart Rhythm Problems: Yes ("a doctor told me I had a rhythm problem") Cancer: No Cardiac Catheterization: No Cardiovascular Problems: Yes Chemotherapy: No Chest Pain: Yes Congestive Heart Failure: No Cerebrovascular Accident: No Diabetes: No Diminished Hearing: No Endocrine: No Gastrointestinal Disorders: Yes (IBS) Genitourinary: No Hepatitis: Yes (HX OF HEP A) Hypertension: Yes Immune Disorder: No Implanted Vascular Access Dvce: No Musculoskeletal: Yes Neurologic: No Psychiatric: Yes ("auditory hallucinations at times") Reproductive: No Respiratory: No Integumentary: Yes (CHRONIC "IMPETIGO" ON BLE) Immunizations Current: Yes (HEPATITIS-2001) Migraines: Yes Myocardial Infarction: Yes (STATES MY DOCTOR TOLD ME MY EKG WAS ABNORMAL AND THAT i HAD A HEART ATTACK) Schizophrenia: Yes Thyroid Disease: Yes Tetanus Vaccination: < 5 Years Influenza Vaccination: No ?: Not Menopausal: Yes : 3 Para: 3 Miscarriage: 0 : 0 Ovarian Cysts: Yes Past Surgical History Coronary Artery Bypass Graft: No Eye Surgery: Yes (right eye surgery) Gynecologic Surgery: Yes (OVARIAN CYST SURGER AT THE AGE OF 22 ) Hysterectomy: No Pacemaker: No Other Surgery: Yes (R CHEEK SURGERY AT THE AGE 22) Social History Alcohol Use: No Tobacco Use: Yes ("2-3 cigs a day") Substance Use: Yes (MARIJUANA) Allergies-Medications (Allergen,Severity, Reaction): Coded Allergies: chlorpromazine (Unverified Adverse Reaction, Severe, LOWERS BP, 03/03/17) erythromycin base (Unverified Adverse Reaction, Severe, INCREASED HR, ) haloperidol (Unverified Adverse Reaction, Severe, LOWERS BP, 03/03/17) thioridazine (Unverified Adverse Reaction, Severe, LOWERS BP, 03/03/17) trifluoperazine (Unverified Adverse Reaction, Severe, LOWERS BP, 03/03/17) Reported Meds & Prescriptions Reported Meds & Active Scripts Active Lidoderm (Lidocaine) 5 % Adh..patch 1 Patch TOPICAL DAILY PRN Albuterol Neb (Albuterol Sulfate) 1.25 Mg/3 Ml Neb 1.25 Mg NEB QID NEB PRN Nebulizer Kit/Tubing/Mout (N/A) 1 Kit Kit 1 Kit .ROUTE DIRECTED Ventolin Hfa 18 GM Inh (Albuterol Sulfate) 90 Mcg/Act Aer 2 Puff INH Q4-6H PRN Reported Omeprazole 40 Mg Cap 40 Mg PO DAILY Review of Systems Except as stated in HPI: all other systems reviewed are Neg General / Constitutional: No: Fever HENT: No: Headaches Respiratory: No: Shortness of Breath Gastrointestinal: No: Abdominal Pain Genitourinary: No: Dysuria Physical Exam Narrative GENERAL: Alert 61-year-old female. No distress. Patient is sleeping and resting comfortably on the stretcher. SKIN: Warm and dry. HEAD: Normocephalic. EYES: No scleral icterus. No injection or drainage. NECK: Supple, trachea midline. No JVD or lymphadenopathy. CARDIOVASCULAR: Regular rate and rhythm without murmurs, gallops, or rubs. Chest wall/rib tenderness to the left anterior lateral aspect. No crepitus felt. No overlying ecchymosis. RESPIRATORY: Breath sounds equal bilaterally. No accessory muscle use. GASTROINTESTINAL: Abdomen soft, non-tender, nondistended. Data Data Last Documented VS Vital Signs Date Time Temp Pulse Resp B/P (MAP) Pulse Ox O2 Delivery O2 Flow Rate FiO2 03/03/17 12:02 98.5 65 16 107/67 (80) 96 Orders Orders Chest, Pa & Lat (03/03/17 ) Ed Discharge Order (03/03/17 13:52) MDM Medical Decision Making Medical Screen Exam Complete: Yes Emergency Medical Condition: Yes Differential Diagnosis Thoracic strain, rib fracture, contusion, pneumothorax Narrative Course 61 year old female with left lateral rib pain since. The pain is reproducible. Her vitals are stable. She is well-appearing. Chest x-ray is negative for rib fracture, consolidation, pneumothorax. Patient is well-appearing and ready for discharge Diagnosis Primary Impression: Rib pain Referrals: [facility] Additional Instructions: Tylenol or ibuprofen as needed for pain. Follow-up he is a clinic. Scripts Ibuprofen (Ibuprofen) 600 Mg Tab 600 MG PO Q6H Y for PAIN, #30 TAB 0 Refills Prov: Alicia Mayfield 03/03/17 Disposition: 01 DISCHARGE HOME Condition: Stable Alicia Mayfield Mar 03, 2017 13:35
[2017-03-03] MEDS ORDERED: IBUP-232 PO (14:19)
== END 2017-03-03 14:23 | disposition home or self-care (01) ==
LOC: PHEFT 11:55
DX: R07.81 Pleurodynia (principal); R05 Cough; I10 Essential (primary) hypertension; E07.9 Disorder of thyroid, unspecified; I25.2 Old myocardial infarction; Z72.0 Tobacco use; Z87.39 Personal history of other diseases of the musculoskeletal system and connective tissue; Z86.59 Personal history of other mental and behavioral disorders; Z86.79 Personal history of other diseases of the circulatory system; Z87.19 Personal history of other diseases of the digestive system; Z87.2 Personal history of diseases of the skin and subcutaneous tissue
CPT/HCPCS: 71020; 99283

== ENCOUNTER 2017-04-23 15:27 | Emergency (ER) | payer MEDICARE, OTHER ==
[~2017-04-23] VITALS: Ht 170.2 cm; Wt 78.0 kg
[2017-04-23 15:27] VITALS: BP 117/79; PULSE 64; RESP 20; TEMP 98.1; O2SAT 96
[~2017-04-23 15:27] MED LIST changes: -HYDR-3288 PO; +IBUP-232 PO; +OMEP40CA2 PO
--- NOTE | 2017-04-23 17:09 | RADRPT ---
EXAM DATE/TIME: 04/23/2017 16:42 [facility] COMPARISON: No previous studies available for comparison. INDICATIONS : Pain post fall. MEDICAL HISTORY : Herniated disc. SURGICAL HISTORY : None. ENCOUNTER: Initial ACUITY: 2 days PAIN SCORE: 10/10 LOCATION: Lower back. FINDINGS: 5 views of the lumbar spine demonstrate 5 nonrib-bearing lumbar vertebral bodies with leftward convex curvature. There is no anterolisthesis, retrolisthesis, or pars defect identified. No definite compr ession fracture is seen. There is degenerative disc disease at L1-L2 through L4-L5. Endplate osteophy tomás are present at these levels. There is facet hypertrophy at L4-L5. Pelvic bones and soft tissues demonstrate no acute finding. CONCLUSION: Under mineralized bones with levoscoliosis and multilevel degenerative change, as above. No acute lum bar spine abnormality is appreciated. Brandan Marques MD on April 23, 2017 at 17:05 Board Certified Radiologist. This report was verified electronically.
[2017-04-23] MEDS ORDERED: CYCL10TA PO (17:22)
[2017-04-23] MEDS ORDERED: IBUP1TAB7 PO (17:22)
--- NOTE | 2017-04-23 17:23 | PD ---
HPI Chief Complaint: Fall Time Seen by Provider: 16:15 Travel History International Travel<30 days: No Contact w/Intl Traveler<30days: No Traveled to known affect area: No History of Present Illness HPI This is a 61-year-old female here with low back pain after she had mechanical fall yesterday. She reports she tripped on uneven lily falling onto the left side. She has had pain in the low back since. Denies paresthesia or weakness of the extremities. No fever chills. No incontinence or saddle anesthesia. Severity is moderate. Worse with movement and relieved with rest. PFSH Past Medical History Hx Anticoagulant Therapy: No Arthritis: Yes Blood Disorders: Yes Anxiety: Yes Depression: Yes Heart Rhythm Problems: Yes ("a doctor told me I had a rhythm problem") Cancer: No Cardiac Catheterization: No Cardiovascular Problems: Yes Chemotherapy: No Chest Pain: Yes Congestive Heart Failure: No Cerebrovascular Accident: No Diabetes: No Diminished Hearing: No Endocrine: No Gastrointestinal Disorders: Yes (IBS) Genitourinary: No Hepatitis: Yes (HX OF HEP A) Hypertension: Yes Immune Disorder: No Implanted Vascular Access Dvce: No Musculoskeletal: Yes (DISC PROBLEMS LOWER BACK) Neurologic: No Psychiatric: Yes ("auditory hallucinations at times") Reproductive: No Respiratory: Yes Integumentary: Yes (CHRONIC "IMPETIGO" ON BLE) Immunizations Current: Yes (HEPATITIS-2000) Migraines: Yes Myocardial Infarction: Yes (STATES MY DOCTOR TOLD ME MY EKG WAS ABNORMAL AND THAT i HAD A HEART ATTACK) Schizophrenia: Yes Thyroid Disease: Yes Ulcer: Yes (ESOPHAGEAL ULCER.) Tetanus Vaccination: > 5 Years Influenza Vaccination: No ?: Not Menopausal: Yes : 3 Para: 3 Miscarriage: 0 : 0 Ovarian Cysts: Yes Past Surgical History Coronary Artery Bypass Graft: No Eye Surgery: Yes (right eye surgery) Gynecologic Surgery: Yes (OVARIAN CYST SURGER AT THE AGE OF 22 ) Hysterectomy: No Pacemaker: No Other Surgery: Yes (R CHEEK SURGERY AT THE AGE 22) Social History Alcohol Use: No Tobacco Use: Yes ("2-3 cigs a day") Substance Use: Yes (MARIJUANA) Allergies-Medications (Allergen,Severity, Reaction): Coded Allergies: chlorpromazine (Unverified Adverse Reaction, Severe, LOWERS BP, 04/23/17) erythromycin base (Unverified Adverse Reaction, Severe, INCREASED HR, 04/23) haloperidol (Unverified Adverse Reaction, Severe, LOWERS BP, 04/23/17) thioridazine (Unverified Adverse Reaction, Severe, LOWERS BP, 04/23/17) trifluoperazine (Unverified Adverse Reaction, Severe, LOWERS BP, 04/23/17) Reported Meds & Prescriptions Reported Meds & Active Scripts Active Albuterol Neb (Albuterol Sulfate) 1.25 Mg/3 Ml Neb 1.25 Mg NEB QID NEB PRN Ventolin Hfa 18 GM Inh (Albuterol Sulfate) 90 Mcg/Act Aer 2 Puff INH Q4-6H PRN Reported Omeprazole 40 Mg Cap 40 Mg PO DAILY Review of Systems Except as stated in HPI: all other systems reviewed are Neg General / Constitutional: No: Fever Physical Exam Narrative GENERAL: Well-nourished, well-developed patient. SKIN: Focused skin assessment warm/dry. HEAD: Normocephalic. EYES: No injection or drainage. NECK: Supple. No midline spine tenderness CARDIOVASCULAR: Regular rate and rhythm without murmurs, gallops, or rubs. RESPIRATORY: Breath sounds equal bilaterally. No accessory muscle use. GASTROINTESTINAL: Abdomen soft, non-tender, nondistended. MUSCULOSKELETAL: No cyanosis, or edema. Normal strength and sensation in lower extremities. She can flex and extend great toe bilaterally. BACK: without obvious deformity. No CVA tenderness. + Tenderness to the lumbar spine. Data Data Last Documented VS Vital Signs Date Time Temp Pulse Resp B/P (MAP) Pulse Ox O2 Delivery O2 Flow Rate FiO2 04/23/17 15:27 98.1 64 20 117/79 (92) 96 Orders Orders Spine, Lumbar Comp W/Obliq (04/23/17 ) [facility] Medical Decision Making Medical Screen Exam Complete: Yes Emergency Medical Condition: Yes Differential Diagnosis Lumbar spine fracture, lumbar strain him a herniated disc Narrative Course This is a 61-year-old female here with low back pain after a mechanical trip and fall yesterday. She has a normal neurologic exam. X-rays negative for fracture. She'll be treated for lumbar strain Diagnosis Primary Impression: Lumbar strain Qualified Codes: S39.012A - Strain of muscle, fascia and tendon of lower back , initial encounter Referrals: Primary Care Physician Additional Instructions: Medications as directed Avoid heavy lifting or strenuous activity. Follow-up the primary doctor Scripts Cyclobenzaprine (Flexeril) 10 Mg Tab 10 MG PO TID for Muscle Spasm, #12 TAB 0 Refills Prov: Alicia Mayfield 04/23/17 Disposition: 01 DISCHARGE HOME Condition: Stable Alicia Mayfield Apr 23, 2017 17:23
[2017-04-23] MEDS ORDERED: KETOROLAC TROMETHAMINE 60 MG/2 ML (IM) VIAL IM ONE (17:30)
== END 2017-04-23 17:35 | disposition home or self-care (01) ==
LOC: PHEFT 15:27
DX: M19.90 Unspecified osteoarthritis, unspecified site (principal); S39.012A Strain of muscle, fascia and tendon of lower back, initial encounter; K58.9 Irritable bowel syndrome, unspecified; I10 Essential (primary) hypertension; F12.90 Cannabis use, unspecified, uncomplicated; W01.0XXA Fall on same level from slipping, tripping and stumbling without subsequent striking against object, initial encounter; Z72.0 Tobacco use; Z88.1 Allergy status to other antibiotic agents
CPT/HCPCS: 72110; 96372; 99284; J1885